=== PATIENT | female | born 1945 | race Caucasian/White ===

== ENCOUNTER 2016-09-10 08:09 | Emergency (ER) | payer MEDICARE ==
[~2016-09-10] VITALS: Ht 165.1 cm; Wt 40.8 kg
--- NOTE | 2016-09-10 08:30 | EKG ---
[facility] [address] [place] [address] Test Date: 2016-09-10 Test Time: 08:13:35 Pat Name: SANTOS URBAN Department: Room: Gender: F On Air Director: : 1945 Requested By: AMARI STORY Order Number: [id number] Reading MD: Chelita Pinto Measurements Intervals [place] Rate: 81 P: 24 DE: 146 QRS: -13 QRSD: 88 T: 56 QT: 428 QTc: 498 Interpretive Statements SINUS RHYTHM LEFT ATRIAL ABNORMALITY LEFTWARD AXIS QRS(T) CONTOUR ABNORMALITY CONSISTENT WITH ANTEROSEPTAL INFARCT AGE UNDETERMINED RI6.01 No previous ECG available for comparison Electronically Signed On 09-12-2016 17:47:28 CDT by Chelita Pinto
--- NOTE | 2016-09-10 08:35 | PHYS DOC ---
Past Medical History Past Medical History: Cancer, High Cholesterol Additional Past Medical Histor: Melanoma Past Surgical History: Other Additional Past Surgical Histo: Lt shoulder Alcohol Use: None Drug Use: None Adult General Chief Complaint Chief Complaint: CHEST PAIN HPI HPI This is a 71-year-old female whose presenting from [address] [place] [address] facility for concerning chest pain. Patient states the pain was left-sided and was significant upon awakening. EMS upon arrival states she had some concerning elevation that was seen in V3 and V4. A 325 mg aspirin was given. Upon arrival now, the patient is in no acute distress and states her pain is fully resolved. She had no associated symptoms with her pain. She denies any nausea or vomiting. She denies any chest pain or shortness of breath. She is alert and oriented at this time and can answer basic questions and follow commands. She has history of advanced dementia but is at her stated baseline. She is saturating near 100% on room air in no acute distress. She denies any significant cardiac history. She is status post 1 week from left clavicular repair states her pain was lower than her clavicular repair site when she had it. Review of Systems Review of Systems Constitutional: Denies fever or chills [] Eyes: Denies change in visual acuity, redness, or eye pain [] HENT: Denies nasal congestion or sore throat [] Respiratory: Denies cough or shortness of breath [] Cardiovascular: No additional information not addressed in HPI [] GI: Denies abdominal pain, nausea, vomiting, bloody stools or diarrhea [] : Denies dysuria or hematuria [] Musculoskeletal: Denies back pain or joint pain [] Integument: Denies rash or skin lesions [] Neurologic: Denies headache, focal weakness or sensory changes [] Endocrine: Denies polyuria or polydipsia [] Current Medications Current Medications Current Medications Medications (Trade) Dose Ordered Sig/Rafaela Start Time Stop Time Status Last Admin Dose Admin Acetaminophen (Tylenol) 650 mg PRN Q4HRS PRN 09/10/16 09:15 09/11/16 09:14 Ondansetron HCl (Zofran) 4 mg PRN Q8HRS PRN 09/10/16 09:15 09/11/16 09:14 Allergies Allergies Allergies Coded Allergies Type Severity Reaction Last Updated Verified No Known Drug Allergies 09/10/16 No Physical Exam Physical Exam Constitutional: Well developed, well nourished, no acute distress, non-toxic appearance. [] HENT: Normocephalic, atraumatic, bilateral external ears normal, oropharynx moist, no oral exudates, nose normal. [] Eyes: PERRLA, EOMI, conjunctiva normal, no discharge. [] Neck: Normal range of motion, no tenderness, supple, no stridor. [] Cardiovascular:Heart rate regular rhythm, no murmur [] Lungs & Thorax: Bilateral breath sounds clear to auscultation [] Abdomen: Bowel sounds normal, soft, no tenderness, no masses, no pulsatile masses. [] Skin: Warm, dry, no erythema, no rash. [] Back: No tenderness, no CVA tenderness. [] Extremities: No tenderness, no cyanosis, no clubbing, ROM intact, no edema. [] Neurologic: Alert and oriented X 3, normal motor function, normal sensory function, no focal deficits noted. [] Psychologic: Affect normal, judgement normal, mood normal. [] Current Patient Data Vital Signs Vital Signs Date Time Temp Pulse Resp B/P (MAP) Pulse Ox O2 Delivery O2 Flow Rate FiO2 09/10/16 09:00 92 20 178/81 (113) 97 09/10/16 08:09 99.1 Room Air 99.1 Lab Values Laboratory Tests Test 09/10/16 08:25 09/10/16 10:16 White Blood Count 5.0 x10^3/uL (4.0-11.0) Red Blood Count 4.22 x10^6/uL (3.50-5.40) Hemoglobin 12.9 g/dL (12.0-15.5) Hematocrit 39.1 % (36.0-47.0) Mean Corpuscular Volume 93 fL (79-100) Mean Corpuscular Hemoglobin 31 pg (25-35) Mean Corpuscular Hemoglobin Concent 33 g/dL (31-37) Red Cell Distribution Width 14.7 % (11.5-14.5) H Platelet Count 226 x10^3/uL (140-400) Neutrophils (%) (Auto) 81 % (31-73) H Lymphocytes (%) (Auto) 12 % (24-48) L Monocytes (%) (Auto) 6 % (0-9) Eosinophils (%) (Auto) 0 % (0-3) Basophils (%) (Auto) 1 % (0-3) Neutrophils # (Auto) 4.0 x10^3uL (1.8-7.7) Lymphocytes # (Auto) 0.6 x10^3/uL (1.0-4.8) L Monocytes # (Auto) 0.3 x10^3/uL (0.0-1.1) Eosinophils # (Auto) 0.0 x10^3/uL (0.0-0.7) Basophils # (Auto) 0.0 x10^3/uL (0.0-0.2) Sodium Level 143 mmol/L (136-145) Potassium Level 4.0 mmol/L (3.5-5.1) Chloride Level 105 mmol/L (98-107) Carbon Dioxide Level 31 mmol/L (21-32) Anion Gap 7 (6-14) Blood Urea Nitrogen 18 mg/dL (7-20) Creatinine 0.8 mg/dL (0.6-1.0) Estimated GFR (Cockcroft-Gault) 70.5 Glucose Level 97 mg/dL (70-99) Calcium Level 9.5 mg/dL (8.5-10.1) Troponin I Quantitative < 0.017 ng/mL (0.000-0.055) < 0.017 ng/mL (0.000-0.055) Laboratory Tests 09/10/16 08:25 Laboratory Tests 09/10/16 08:25 EKG EKG EKG as interpreted by me shows a sinus rhythm with a rate of 81 bpm. There is no STEMI criteria seen. There is a leftward axis. QTc interval is slightly prolonged at 498 ms. Radiology/Procedures Radiology/Procedures Indication left-sided chest pain. A single view of the chest was obtained. No prior imaging of the chest is available. There is mild cardiomegaly. There are background changes suggesting emphysema or fibrosis. There is no congestive heart failure. An acute parenchymal infiltrate is not seen. Significant pleural fluid is not present and there is no pneumothorax. There are healed left rib fractures. Postoperative changes are seen associated with the left clavicle. IMPRESSION: No acute process is seen in the chest Course & Med Decision Making Course & Med Decision Making Pertinent Labs and Imaging studies reviewed. (See chart for details) This is 71-year-old female who states she's having ongoing chest pain that could be related to her recent left clavicular surgery. Her pain is now resolved upon arrival. Her EKG and chest film at this time are fairly on. Her laboratory workup is unremarkable. I discussed the case with the on-call cardiology team who came down to the bedside to evaluate the patient. I'll be admitting the patient primarily to the hospitalist service. I will discuss the case with the admitting physician, Dr. Shah. Dr. Chua has agreed to come down and evaluate the patient at bedside. A second troponin will also be ordered. If cardiology clears the patient and her second troponin is negative, the patient will be safe to be discharged at this time. Her second troponin was negative. Patient was observed in the department for over 3 hours without any return of her chest pain. Dr. Chua agreed that the patient will be safe to be discharged at this time and so she will be discharged to follow closely with her primary care doctor with return precautions. Dragon Disclaimer Dragon Disclaimer This electronic medical record was generated, in whole or in part, using a voice recognition dictation system. Departure Departure Impression: Primary Impression: Chest pain Disposition: 01 HOME, SELF-CARE Admitting Physician: Other Condition: STABLE Referrals: GRISEL CHUA MD Patient Instructions: Chest Pain (Nonspecific)-Brief Additional Instructions: Please follow up with the band scroll saw operator as discussed and your primary doctor in the next 2-3 days. Return to the ER if you develop any worsening of your symptoms. AMARI STORY DO September 10, 2016 08:35
[2016-09-10 08:38] LABS: BASO % 1 % (0-3); EOS % 0 % (0-3); HEMATOCRIT 39.1 % (36.0-47.0); HEMOGLOBIN 12.9 g/dL (12.0-15.5); LYMPH # 0.6 x10^3/uL (1.0-4.8); LYMPH % 12 % (24-48); MEAN CORPUSCULAR HEMOGLOBIN 31 pg (25-35); MEAN CORPUSCULAR HGB CONC 33 g/dL (31-37); MEAN CORPUSCULAR VOLUME 93 fL (79-100); MONO % 6 % (0-9); NEUT % 81 % (31-73); PLATELET COUNT 226 x10^3/uL (140-400); RED BLOOD COUNT 4.22 x10^6/uL (3.50-5.40); RED CELL DISTRIBUTION WIDTH 14.7 % (11.5-14.5)
--- NOTE | 2016-09-10 08:39 | RAD ---
Indication left-sided chest pain. A single view of the chest was obtained. No prior imaging of the chest is available. There is mild cardiomegaly. There are background changes suggesting emphysema or fibrosis. There is no congestive heart failure. An acute parenchymal infiltrate is not seen. Significant pleural fluid is not present and there is no pneumothorax. There are healed left rib fractures. Postoperative changes are seen associated with the left clavicle. IMPRESSION: No acute process is seen in the chest
[2016-09-10 08:44] LABS: CALCIUM 9.5 mg/dL (8.5-10.1); CREATININE 0.8 mg/dL (0.6-1.0); GFR 70.5
--- NOTE | 2016-09-10 09:01 | PDOC2 ---
SUMEETSABINE MORALES Darinel OPERATIONS MANAGEMENT TRAINEE 09/10/16 0901: CARDIAC CONSULT DATE OF CONSULT Date of Consult DATE: 09/10/16 TIME: 09:00 REASON FOR CONSULT Reason for Consult: chest pain REFERRING PHYSICIAN Referring Physician: Dr. Vincent Bishop SOURCE Source: Caregiver (), Chart review, Patient (is demented) HISTORY OF PRESENT ILLNESS HISTORY OF PRESENT ILLNESS 71 year old female from [facility] who was evaluated in the ER with c/o chest pain. Initially called as STEMI, then cancelled. EKG without acute changes, ? LVH. Initial troponin not consistent with AMI. Pain resolved en route via ambulance and patient reports pain meds given at [facility]. Patient locates pain in left shoulder region and has a new incision in that area. reports two surgeries done for fracture with the most recent involving placement of a plate about a week ago. Patient fell onto concrete about 3 weeks ago and also fractured her pelvis and sacrum. Discussed with ER physician and patient initially located pain in the left upper chest. Reason for Visit: chest pain PAST MEDICAL HISTORY Cardiovascular: Hyperlipidemia Pulmonary: Other (stage IV melanoma with mets to lungs and left lobectomy about 25 years ago) CENTRAL NERVOUS SYSTEM: Dementia GI: No pertinent hx Heme/Onc: Cancer (melanoma with lung mets) Hepatobiliary: No pertinent hx Psych: No pertinent hx Musculoskeletal: Osteoarthritis Rheumatologic: No pertinent hx Infectious disease: No pertinent hx ENT: No pertinent hx Renal/: No pertinent hx Dermatology: No pertinent hx PAST SURGICAL HISTORY Past Surgical History see PMH and HPI FAMILY HISTORY Family History: Heart Disease, Stroke (father) SOCIAL HISTORY Smoke: No ALCOHOL: none Drugs: None Lives: Long-Term ([facility]) ALLERGIES ALLERGIES: Coded Allergies: No Known Drug Allergies (Unverified , 09/10/16) ROS Review of System 14 point review with pertinent positive in HPI Eyes: Yes Uses glasses PHYSICAL EXAM General: Alert, Cooperative, No acute distress, Other (frail, elderly) HEENT: Atraumatic, PERRLA Lungs: Clear to auscultation, Normal air movement Heart: Regular rate, Normal S1, Normal S2, No murmurs, Other (no carotid bruits ) Abdomen: Normal bowel sounds, Soft, No tenderness Extremities: No edema, Normal pulses Skin: No rashes Neuro: Normal speech Psych/Mental Status: Mood NL, Other (poor recall) MUSCULOSKELETAL: Osteoarthritic changes both hands VITALS VITALS Vital Signs Date Time Temp Pulse Resp B/P (MAP) Pulse Ox O2 Delivery O2 Flow Rate FiO2 09/10/16 08:09 99.1 77 20 179/80 (113) 99 Room Air 99.1 LABS Lab: Laboratory Tests Test 09/10/16 08:25 White Blood Count 5.0 x10^3/uL (4.0-11.0) Red Blood Count 4.22 x10^6/uL (3.50-5.40) Hemoglobin 12.9 g/dL (12.0-15.5) Hematocrit 39.1 % (36.0-47.0) Mean Corpuscular Volume 93 fL (79-100) Mean Corpuscular Hemoglobin 31 pg (25-35) Mean Corpuscular Hemoglobin Concent 33 g/dL (31-37) Red Cell Distribution Width 14.7 % (11.5-14.5) Platelet Count 226 x10^3/uL (140-400) Neutrophils (%) (Auto) 81 % (31-73) Lymphocytes (%) (Auto) 12 % (24-48) Monocytes (%) (Auto) 6 % (0-9) Eosinophils (%) (Auto) 0 % (0-3) Basophils (%) (Auto) 1 % (0-3) Neutrophils # (Auto) 4.0 x10^3uL (1.8-7.7) Lymphocytes # (Auto) 0.6 x10^3/uL (1.0-4.8) Monocytes # (Auto) 0.3 x10^3/uL (0.0-1.1) Eosinophils # (Auto) 0.0 x10^3/uL (0.0-0.7) Basophils # (Auto) 0.0 x10^3/uL (0.0-0.2) Sodium Level 143 mmol/L (136-145) Potassium Level 4.0 mmol/L (3.5-5.1) Chloride Level 105 mmol/L (98-107) Carbon Dioxide Level 31 mmol/L (21-32) Anion Gap 7 (6-14) Blood Urea Nitrogen 18 mg/dL (7-20) Creatinine 0.8 mg/dL (0.6-1.0) Estimated GFR (Cockcroft-Gault) 70.5 Glucose Level 97 mg/dL (70-99) Calcium Level 9.5 mg/dL (8.5-10.1) Troponin I Quantitative < 0.017 ng/mL (0.000-0.055) IMAGES IMAGES CXR without acute findings; plate in left shoulder EKG EKG no acute changes ASSESSMENT/PLAN ASSESSMENT/PLAN 1. chest pain, atypical no acute changes in EKG and initial troponin not consistent with AMI patient locates pain along recent incision on left shoulder repeat troponin level, evaluate by primary blender operator and expect transfer back to [facility] this a.m. no further evaluation planned at this time 2. recent fall with shoulder, pelvis and sacral fractures recent left shoulder surgery for repair of fracture 3. dementia 4. remote history of stage IV melanoma with left lobectomy Problems: GRISEL AGUIRRE MD 09/10/16 1356: CARDIAC CONSULT ALLERGIES ALLERGIES: Coded Allergies: No Known Drug Allergies (Unverified , 09/10/16) ASSESSMENT/PLAN ASSESSMENT/PLAN Pt. seen and examined. Agree with above MISSILE CONTROL PILOT note. 71 y.o woman with non-cardiac pain Normal cardiac exam no edema trop neg x 2. supportive care. pls call with questions. Problems: SABINE FIGUEROA APRN September 10, 2016 09:01 GRISEL AGUIRRE MD September 10, 2016 13:56
[2016-09-10] MEDS ORDERED: ONDANSETRON PF 4 MG/2 ML VIAL. IV PRN (09:15)
[2016-09-10] MEDS ORDERED: ACETAMINOPHEN 325 MG TABLET. PO PRN (09:15)
[2016-09-10 12:00] VITALS: BP 194/84
== END 2016-09-10 12:15 | disposition home or self-care (01) ==
LOC: ER 08:09
DX: R07.9 Chest pain, unspecified (principal); E78.00 Pure hypercholesterolemia, unspecified
CPT/HCPCS: 36415; 71010; 80048; 84484; 85027; 93005; 99285-25

== ENCOUNTER 2018-01-09 19:05 | Emergency (ER) | payer MEDICARE ==
[~2018-01-09] VITALS: Ht 152.4 cm; Wt 40.8 kg
[2018-01-09 19:27] LABS: BASO # 0.1 x10^3/uL (0.0-0.2); BASO % 1 % (0-3); EOS # 0.1 x10^3/uL (0.0-0.7); EOS % 1 % (0-3); HEMATOCRIT 39.5 % (36.0-47.0); HEMOGLOBIN 13.4 g/dL (12.0-15.5); LYMPH % 19 % (24-48); MEAN CORPUSCULAR HEMOGLOBIN 31 pg (25-35); MEAN CORPUSCULAR HGB CONC 34 g/dL (31-37); MEAN CORPUSCULAR VOLUME 90 fL (79-100); MONO # 0.5 x10^3/uL (0.0-1.1); MONO % 10 % (0-9); NEUT # 3.5 x10^3uL (1.8-7.7); NEUT % 68 % (31-73); PLATELET COUNT 198 x10^3/uL (140-400); RED BLOOD COUNT 4.38 x10^6/uL (3.50-5.40); RED CELL DISTRIBUTION WIDTH 16.4 % (11.5-14.5); WHITE BLOOD COUNT 5.1 x10^3/uL (4.0-11.0)
[2018-01-09 19:35] LABS: BILIRUBIN,URINE NEGATIVE (NEG); CLARITY,URINE CLEAR; COLOR,URINE YELLOW; NITRITE,URINE NEGATIVE (NEG); PH,URINE 6.5; PROTEIN,URINE NEGATIVE (NEG-TRACE); UROBILINOGEN,URINE 0.2 mg/dL (0.2 mg/dL)
[2018-01-09 19:36] LABS: PROTHROMBIN TIME PATIENT 12.9 SEC (11.7-14.0)
[2018-01-09 19:41] LABS: CALCIUM 9.3 mg/dL (8.5-10.1); CREATININE 1.2 mg/dL (0.6-1.0); POTASSIUM 4.7 mmol/L (3.5-5.1)
[2018-01-09 19:43] LABS: BACTERIA,URINE 0 /HPF (0-FEW); WBC,URINE OCC /HPF (0-4)
[2018-01-09 19:44] LABS: HYALINE CASTS, URINE FEW /HPF
[2018-01-09 19:45] LABS: AMPHETAMINE/METHAMPHETAMINE NEG (NEG); BARBITURATES NEG (NEG); BENZODIAZEPINES NEG (NEG); CANNABINOIDS NEG (NEG); COCAINE NEG (NEG); METHADONE NEG (NEG); OPIATES NEG (NEG); PHENCYCLIDINE NEG (NEG)
[2018-01-09 19:46] LABS: ALBUMIN 3.2 g/dL (3.4-5.0); ALBUMIN/GLOBULIN RATIO 0.8 (1.0-1.7); TOTAL BILIRUBIN 0.3 mg/dL (0.2-1.0); TOTAL PROTEIN 7.4 g/dL (6.4-8.2)
--- NOTE | 2018-01-09 20:25 | RAD ---
CT brain without contrast, CT maxillofacial without contrast, CT cervical spine without contrast. HISTORY: History of dementia, left eye swelling fell off bed, unwitnessed fall CT brain CT scan of brain was done without contrast. A skull fracture is not identified. There is no intracranial hemorrhage. A subdural hematoma is not identified. Ventricles are dilated. There is mild atrophy. There is decreased density in the white matter likely chronic microvascular change. An acute CVA is not identified. IMPRESSION: 1. Atrophy and chronic white matter changes. 2. Ventricular dilatation probably related atrophy. 3. No intracranial hemorrhage or other acute change. End impression CT FACIAL BONES: Axial noncontrast images were obtained to the facial bones. Mandible is intact. Sinuses are clear throughout. There is soft tissue swelling of the left orbit. An orbital fracture is not identified. Nasal bone appears intact. IMPRESSION: 1. Left orbital swelling. 2. No facial fracture noted. 3. Sinuses are clear. CT cervical spine Axial CT images were obtained to the cervical spine. There is degenerative change and hypertrophic spurring. An acute fracture is not identified. There is mild scoliosis which could be positional. There is facet arthritis at multiple levels. There is disc space narrowing at C4-5, C5-6 and C6-7 with spurring. IMPRESSION: 1. Extensive degenerative changes in the cervical spine. 2. No acute C-spine fracture PQRS Compliance Statement: One or more of the following individualized dose reduction techniques were utilized for this examination: 1. Automated exposure control 2. Adjustment of the mA and/or kV according to patient size 3. Use of iterative reconstruction technique Electronically signed by: Adama Danielle MD (01/09/2018 8:21 PM) [id number]
--- NOTE | 2018-01-09 20:35 | PHYS DOC ---
Past Medical History Past Medical History: Cancer, Dementia, High Cholesterol Additional Past Medical Histor: Melanoma, left clavicle fx/repair Past Surgical History: Other Additional Past Surgical Histo: Lt clavicle fx/repair Alcohol Use: None Drug Use: None Adult General Chief Complaint Chief Complaint: TRAUMA ALERT HPI HPI 72-year-old female who resides in a memory care unit presents after they found her wedged between the wall and the bed. Patient is unable to tell me exactly what happened. They think she fell and hit her head on the wall. Unknown if she lost consciousness. Patient states that she has no significant pain. No other injury.[] Review of Systems Review of Systems Review of systems is unobtainable secondary to baseline dementia. Allergies Allergies Allergies Coded Allergies Type Severity Reaction Last Updated Verified No Known Drug Allergies 09/10/16 No Physical Exam Physical Exam Constitutional: Elderly female in no distress. [] HENT: Large left periorbital hematoma no zygomatic crepitus[] Eyes: PERRLA, EOMI, conjunctiva normal, no discharge. [] Neck: Normal range of motion, no tenderness, supple, no stridor. [] Cardiovascular:Heart rate regular rhythm, no murmur [] Lungs & Thorax: Bilateral breath sounds clear to auscultation [] Abdomen: Bowel sounds normal, soft, no tenderness, no masses, no pulsatile masses. [] Skin: Warm, dry, no erythema, no rash. [] Back: No tenderness, no CVA tenderness. [] Extremities: No tenderness, no cyanosis, no clubbing, ROM intact, no edema. [] Neurologic: Alert and talkative but disoriented, normal motor function, normal sensory function, no focal deficits noted. [] Psychologic: Very pleasant affect. [] Current Patient Data Vital Signs Vital Signs Date Time Temp Pulse Resp B/P (MAP) Pulse Ox O2 Delivery O2 Flow Rate FiO2 01/09/18 20:00 74 118/55 (76) 97 Room Air 01/09/18 19:05 97.6 18 97.6 Lab Values Laboratory Tests Test 01/09/18 19:11 01/09/18 19:27 White Blood Count 5.1 x10^3/uL (4.0-11.0) Red Blood Count 4.38 x10^6/uL (3.50-5.40) Hemoglobin 13.4 g/dL (12.0-15.5) Hematocrit 39.5 % (36.0-47.0) Mean Corpuscular Volume 90 fL (79-100) Mean Corpuscular Hemoglobin 31 pg (25-35) Mean Corpuscular Hemoglobin Concent 34 g/dL (31-37) Red Cell Distribution Width 16.4 % (11.5-14.5) H Platelet Count 198 x10^3/uL (140-400) Neutrophils (%) (Auto) 68 % (31-73) Lymphocytes (%) (Auto) 19 % (24-48) L Monocytes (%) (Auto) 10 % (0-9) H Eosinophils (%) (Auto) 1 % (0-3) Basophils (%) (Auto) 1 % (0-3) Neutrophils # (Auto) 3.5 x10^3uL (1.8-7.7) Lymphocytes # (Auto) 1.0 x10^3/uL (1.0-4.8) Monocytes # (Auto) 0.5 x10^3/uL (0.0-1.1) Eosinophils # (Auto) 0.1 x10^3/uL (0.0-0.7) Basophils # (Auto) 0.1 x10^3/uL (0.0-0.2) Prothrombin Time 12.9 SEC (11.7-14.0) Prothrombin Time INR 1.0 (0.8-1.1) Sodium Level 132 mmol/L (136-145) L Potassium Level 4.7 mmol/L (3.5-5.1) Chloride Level 97 mmol/L (98-107) L Carbon Dioxide Level 29 mmol/L (21-32) Anion Gap 6 (6-14) Blood Urea Nitrogen 13 mg/dL (7-20) Creatinine 1.2 mg/dL (0.6-1.0) H Estimated GFR (Cockcroft-Gault) 44.0 BUN/Creatinine Ratio 11 (6-20) Glucose Level 308 mg/dL (70-99) H Calcium Level 9.3 mg/dL (8.5-10.1) Total Bilirubin 0.3 mg/dL (0.2-1.0) Aspartate Amino Transferase (AST) 28 U/L (15-37) Alanine Aminotransferase (ALT) 40 U/L (14-59) Alkaline Phosphatase 160 U/L (46-116) H Total Protein 7.4 g/dL (6.4-8.2) Albumin 3.2 g/dL (3.4-5.0) L Albumin/Globulin Ratio 0.8 (1.0-1.7) L Ethyl Alcohol Level < 10 mg/dL (0-10) Urine Collection Type Unknown Urine Color Yellow Urine Clarity Clear Urine pH 6.5 Urine Specific [place] 1.025 Urine Protein Negative mg/dL (NEG-TRACE) Urine Glucose (UA) Negative mg/dL (NEG) Urine Ketones (Stick) Trace mg/dL (NEG) Urine Blood Negative (NEG) Urine Nitrite Negative (NEG) Urine Bilirubin Negative (NEG) Urine Urobilinogen Dipstick 0.2 mg/dL (0.2 mg/dL) Urine Leukocyte Esterase Negative (NEG) Urine RBC 6-10 /HPF (0-2) Urine WBC Occ /HPF (0-4) Urine Bacteria 0 /HPF (0-FEW) Urine Hyaline Casts Few /HPF Urine Mucus Mod /LPF Urine Opiates Screen Neg (NEG) Urine Methadone Screen Neg (NEG) Urine Barbiturates Neg (NEG) Urine Phencyclidine Screen Neg (NEG) Urine Amphetamine/Methamphetamine Neg (NEG) Urine Benzodiazepines Screen Neg (NEG) Urine Cocaine Screen Neg (NEG) Urine Cannabinoids Screen Neg (NEG) Urine Ethyl Alcohol Neg (NEG) Laboratory Tests 01/09/18 19:11 Laboratory Tests 01/09/18 19:11 EKG EKG [] Radiology/Procedures Radiology/Procedures [] Impressions: PROCEDURE: CT CERVICAL SPINE WO CONTRAST CT brain without contrast, CT maxillofacial without contrast, CT cervical spine without contrast. HISTORY: History of dementia, left eye swelling fell off bed, unwitnessed fall CT brain CT scan of brain was done without contrast. A skull fracture is not identified. There is no intracranial hemorrhage. A subdural hematoma is not identified. Ventricles are dilated. There is mild atrophy. There is decreased density in the white matter likely chronic microvascular change. An acute CVA is not identified. IMPRESSION: 1. Atrophy and chronic white matter changes. 2. Ventricular dilatation probably related atrophy. 3. No intracranial hemorrhage or other acute change. End impression CT FACIAL BONES: Axial noncontrast images were obtained to the facial bones. Mandible is intact. Sinuses are clear throughout. There is soft tissue swelling of the left orbit. An orbital fracture is not identified. Nasal bone appears intact. IMPRESSION: 1. Left orbital swelling. 2. No facial fracture noted. 3. Sinuses are clear. CT cervical spine Axial CT images were obtained to the cervical spine. There is degenerative change and hypertrophic spurring. An acute fracture is not identified. There is mild scoliosis which could be positional. There is facet arthritis at multiple levels. There is disc space narrowing at C4-5, C5-6 and C6-7 with spurring. IMPRESSION: 1. Extensive degenerative changes in the cervical spine. 2. No acute C-spine fracture Course & Med Decision Making Course & Med Decision Making Pertinent Labs and Imaging studies reviewed. (See chart for details) [] Dragon Disclaimer Dragon Disclaimer This electronic medical record was generated, in whole or in part, using a voice recognition dictation system. Departure Departure Impression: Primary Impression: Contusion of face Additional Impression: Periorbital hematoma of left eye Disposition: 01 HOME, SELF-CARE Condition: STABLE Referrals: DENI BROOKE MD (PCP) Patient Instructions: Facial or Scalp Contusion Additional Instructions: Keep ice on the swollen area several times daily for at least 15-20 minutes at a time. Follow with primary care physician in the next 2-3 days for recheck. Return to emergency department with any new or concerning symptoms Problem Qualifiers Primary Impression: Contusion of face Encounter type: initial encounter Qualified Codes: S00.83XA - Contusion of other part of head, initial encounter RASHEED CARLOS DO Jan 09, 2018 20:35
[2018-01-09 20:45] VITALS: BP 143/63
== END 2018-01-09 22:16 | disposition home or self-care (01) ==
LOC: ER 19:05
DX: S00.83XA Contusion of other part of head, initial encounter (principal); H57.8 Other specified disorders of eye and adnexa; E78.00 Pure hypercholesterolemia, unspecified; F03.90 Unspecified dementia, unspecified severity, without behavioral disturbance, psychotic disturbance, mood disturbance, and anxiety; W18.09XA Striking against other object with subsequent fall, initial encounter; Y93.89 Activity, other specified; Y92.89 Other specified places as the place of occurrence of the external cause; Y99.8 Other external cause status
CPT/HCPCS: 36415; 70450; 70486; 72125; 80053; 80307; 81001; 85025; 85610; 99285; G0480; P9612; G0479

== ENCOUNTER 2018-01-28 18:39 | Inpatient (IN) | payer MEDICARE ==
[~2018-01-28] VITALS: Ht 167.6 cm; Wt 42.5 kg
--- NOTE | 2018-01-28 18:55 | PHYS DOC ---
Past Medical History Past Medical History: Cancer, Dementia, High Cholesterol Additional Past Medical Histor: Melanoma, left clavicle fx/repair Past Surgical History: Other Additional Past Surgical Histo: Lt clavicle fx/repair Alcohol Use: None Drug Use: None Adult General Chief Complaint Chief Complaint: Avulsion on chin secondary to fall HPI HPI Patient is a 72 year old female who presents with an avulsion on her chin after falling. Patient is a poor historian as she has dementia. Per EMS, patient fell at [facility] 4 hours ago at 3pm this afternoon. The fall was unwitnessed, but EMS states the assisted reported there was no loss of consciousness. Patient does not recall falling and uncertain if she hit her head. She has a 1/2 inch wide avulsion on the left side of her chin. She currently denies any pain, headache, dizziness, chest pain, or heart palpitations Review of Systems Review of Systems Constitutional: Denies fever or chills Eyes: Denies change in visual acuity, redness, or eye pain HENT: Notes chin pain; Denies nasal congestion or sore throat Respiratory: Denies cough or shortness of breath Cardiovascular: Denies chest pain or shortness of breath GI: Denies abdominal pain, nausea, vomiting, diarrhea : Denies dysuria or hematuria Musculoskeletal: Denies back pain or joint pain Integument: Denies rash or skin lesions Neurologic: Denies headache, focal weakness or sensory changes Complete systems were reviewed and found to be within normal limits, except as documented in this note. Family History Family History Noncontributory Current Medications Current Medications Current Medications Medications (Trade) Dose Ordered Sig/Rafaela Start Time Stop Time Status Last Admin Dose Admin Ceftriaxone Sodium 50 ml @ 100 mls/hr 1X ONCE 01/28/18 21:30 01/28/18 21:59 DC 01/28/18 22:16 100 MLS/HR Diphtheria/ Tetanus/Acell Pertussis (Boostrix) 0.5 ml ONCE ONCE 01/28/18 20:00 01/28/18 20:01 DC 01/28/18 20:50 0.5 ML Lidocaine/ Epinephrine (LIDOCAINE 2%-EPI 1:100,000 multi-dose) 20 ml 1X ONCE 01/28/18 19:15 01/28/18 19:16 DC 01/28/18 19:50 20 ML Neomycin/ Polymyxin/ Bacitracin (Triple Antibiotic Ointment) 1 pkt 1X ONCE 01/28/18 19:15 01/28/18 19:16 DC 01/28/18 20:50 1 PKT Sodium Chloride 1,000 ml @ 1,000 mls/hr 1X ONCE 01/28/18 19:15 01/28/18 20:14 DC 01/28/18 19:50 1,000 MLS/HR Allergies Allergies Physical Exam Physical Exam Constitutional: Well developed, appears malnourished HENT: Gaping avulsion approx. 3 cm. in length- not currently hemorrhaging, mild hemorrhaging from upper middle gingiva, normocephalic, atraumatic, bilateral external ears normal, oropharynx dry Eyes: Conjunctiva normal, no discharge, approx. 6 cm. contusion 1.5 in. below left eye (probably old) Neck: Decreased range of motion, no tenderness Cardiovascular: Heart rate regular rhythm, no murmur Lungs & Thorax: Bilateral breath sounds clear to auscultation Abdomen: Soft, nontender Skin: Warm, dry, no erythema, no rash Back: No tenderness, no CVA tenderness Extremities: No tenderness, slightly decreased ROM in bilateral hips, no edema Neurologic: Alert and oriented only to person, generalized weakness Psychologic: Affect normal, judgement impaired, mood normal Current Patient Data Vital Signs Vital Signs Date Time Temp Pulse Resp B/P (MAP) Pulse Ox O2 Delivery O2 Flow Rate FiO2 01/28/18 21:23 86 20 165/75 (105) 98 Room Air 01/28/18 18:40 97.2 97.2 Lab Values Laboratory Tests Test 01/28/18 19:08 01/28/18 20:45 White Blood Count 6.3 x10^3/uL (4.0-11.0) Red Blood Count 4.32 x10^6/uL (3.50-5.40) Hemoglobin 13.3 g/dL (12.0-15.5) Hematocrit 39.3 % (36.0-47.0) Mean Corpuscular Volume 91 fL (79-100) Mean Corpuscular Hemoglobin 31 pg (25-35) Mean Corpuscular Hemoglobin Concent 34 g/dL (31-37) Red Cell Distribution Width 15.1 % (11.5-14.5) H Platelet Count 170 x10^3/uL (140-400) Neutrophils (%) (Auto) 66 % (31-73) Lymphocytes (%) (Auto) 21 % (24-48) L Monocytes (%) (Auto) 11 % (0-9) H Eosinophils (%) (Auto) 1 % (0-3) Basophils (%) (Auto) 1 % (0-3) Neutrophils # (Auto) 4.2 x10^3uL (1.8-7.7) Lymphocytes # (Auto) 1.3 x10^3/uL (1.0-4.8) Monocytes # (Auto) 0.7 x10^3/uL (0.0-1.1) Eosinophils # (Auto) 0.1 x10^3/uL (0.0-0.7) Basophils # (Auto) 0.0 x10^3/uL (0.0-0.2) Prothrombin Time 13.7 SEC (11.7-14.0) Prothrombin Time INR 1.1 (0.8-1.1) PTT 25 SEC (24-38) Sodium Level 145 mmol/L (136-145) Potassium Level 4.1 mmol/L (3.5-5.1) Chloride Level 106 mmol/L (98-107) Carbon Dioxide Level 33 mmol/L (21-32) H Anion Gap 6 (6-14) Blood Urea Nitrogen 21 mg/dL (7-20) H Creatinine 0.8 mg/dL (0.6-1.0) Estimated GFR (Cockcroft-Gault) 70.3 BUN/Creatinine Ratio 26 (6-20) H Glucose Level 147 mg/dL (70-99) H Lactic Acid Level 2.1 mmol/L (0.4-2.0) H Calcium Level 9.8 mg/dL (8.5-10.1) Magnesium Level 2.3 mg/dL (1.8-2.4) Total Bilirubin 0.3 mg/dL (0.2-1.0) Aspartate Amino Transferase (AST) 16 U/L (15-37) Alanine Aminotransferase (ALT) 7 U/L (14-59) L Alkaline Phosphatase 85 U/L (46-116) Creatine Kinase 112 U/L (26-192) Troponin I Quantitative < 0.017 ng/mL (0.000-0.055) Total Protein 6.6 g/dL (6.4-8.2) Albumin 3.4 g/dL (3.4-5.0) Albumin/Globulin Ratio 1.1 (1.0-1.7) Valproic Acid Level 71 mcg/mL (50-100) Valproic Acid Last Dose Date Unknown Valproic Acid Last Dose Time Unknown Urine Collection Type U cath Urine Color Yellow Urine Clarity Clear Urine pH 7.0 Urine Specific [place] 1.020 Urine Protein 30 mg/dL (NEG-TRACE) Urine Glucose (UA) Negative mg/dL (NEG) Urine Ketones (Stick) Trace mg/dL (NEG) Urine Blood Moderate (NEG) Urine Nitrite Positive (NEG) Urine Bilirubin Negative (NEG) Urine Urobilinogen Dipstick 0.2 mg/dL (0.2 mg/dL) Urine Leukocyte Esterase Large (NEG) Urine RBC 6-10 /HPF (0-2) Urine WBC >40 /HPF (0-4) Urine Squamous Epithelial Cells Occ /LPF Urine Bacteria Many /HPF (0-FEW) Laboratory Tests 01/28/18 19:08 Laboratory Tests 01/28/18 19:08 EKG EKG @ 19:02, normal sinus rhythm at 82bpm, baseline artifact noted, slight J point abnormalities in V2 and V2, slight ST depression in V5 and V6, no significant changes from previous EKG obtained on 09/10/2016. Doubt ischemic etiology Radiology/Procedures Radiology/Procedures CT head/cervical spine: no acute intracranial processes CT maxillofacial: no acute intracranial processes X-ray of pelvis: no acute abnormalities X-ray of chest: no acute abnormalities Course & Med Decision Making Course & Med Decision Making Patient is a 72 year old female with a history of dementia who presents with an avulsion on her chin after falling. Upon examination, she was found to have a 3 cm avulsion on the left side of her chin along with slight hemorrhage from upper middle gingiva. Patient received 1L normal saline. Pertinent labs and imaging studies were obtained and reviewed (see chart for details). A 12-lead EKG was obtained @ 19:02 and showed normal sinus rhythm at 82bpm with baseline artifact noted, slight J point abnormalities in V2 and V2, and slight ST depression in V5 and V6. No significant changes from previous EKG obtained on 09/10/2016. Doubt ischemic etiology. CT scan of the head and cervical spine and CT scan of maxillofacial region showed no acute intracranial processes. X-ray of pelvis and x-ray of chest showed no acute abnormalities. Patient's avulsion was closed using sutures. Her history of tetanus vaccine could not be obtained and a tetanus vaccine was administered. UA showed positive nitrite, large leukocyte esterase, and >40 urine WBC. Suspect UTI and started patient on Rocephin. Urine sent for culture. She does not meet SIRS criteria. Patient requiring admission for further evaluation and treatment of her UTI. Patient also found to have lactic acidosis. Discussed with Dr. Shah who is in agreement with admission for her UTI and lactic acidosis. Discussed findings and plan with patient, who acknowledges understanding and agreement. Dragon Disclaimer Dragon Disclaimer This electronic medical record was generated, in whole or in part, using a voice recognition dictation system. Departure Departure Impression: Primary Impression: UTI (urinary tract infection) Additional Impressions: Fall Chin laceration Lactic acidosis Disposition: ADMITTED INPATIENT Admitting Physician: Farideh Shah Condition: STABLE Referrals: DENI BROOKE MD (PCP) Laceration/Wound Repair Laceration/Wound Repair : Wound Location: face (chin) Wound's Depth, Shape: superficial Wound Length (cm): 4 Wound Explored: contaminated Irrigated w/ Saline (ccs): 250 Betadine Prep?: Yes (chloro prep) Anesthesia: Lidocaine w/ Epi Wound Debrided: moderate Wound Repaired With: sutures Suture Size/Type: 5:0 Number of Sutures: 6 Layer Closure?: No Sterile Dressing Applied?: Yes Splint Applied?: No Sling Applied?: No Problem Qualifiers Primary Impression: UTI (urinary tract infection) Urinary tract infection type: acute cystitis Hematuria presence: without hematuria Qualified Codes: N30.00 - Acute cystitis without hematuria Additional Impressions: Fall Encounter type: initial encounter Qualified Codes: W19.XXXA - Unspecified fall, initial encounter Chin laceration Encounter type: initial encounter Qualified Codes: S01.81XA - Laceration without foreign body of other part of head, initial encounter KRISTOPHER FRANKLIN DO Jan 28, 2018 18:55
[2018-01-28] MEDS ORDERED: LIDOCAINE 2%/EPI 1:100,000 20 ML VIAL. IJ ONE (19:15)
[2018-01-28] MEDS ORDERED: NEOMY/BACITR/POLYMYXIN OINT PACKET. TP ONE (19:15)
[2018-01-28] MEDS ORDERED: IV NORMAL SALINE 1000ML BAG 1,000 ML IV ONE (19:15)
[2018-01-28 19:22] LABS: BASO % 1 % (0-3); EOS # 0.1 x10^3/uL (0.0-0.7); EOS % 1 % (0-3); HEMATOCRIT 39.3 % (36.0-47.0); HEMOGLOBIN 13.3 g/dL (12.0-15.5); LYMPH # 1.3 x10^3/uL (1.0-4.8); LYMPH % 21 % (24-48); MEAN CORPUSCULAR HEMOGLOBIN 31 pg (25-35); MEAN CORPUSCULAR HGB CONC 34 g/dL (31-37); MEAN CORPUSCULAR VOLUME 91 fL (79-100); MONO # 0.7 x10^3/uL (0.0-1.1); MONO % 11 % (0-9); NEUT # 4.2 x10^3uL (1.8-7.7); NEUT % 66 % (31-73); PLATELET COUNT 170 x10^3/uL (140-400); RED BLOOD COUNT 4.32 x10^6/uL (3.50-5.40); RED CELL DISTRIBUTION WIDTH 15.1 % (11.5-14.5); WHITE BLOOD COUNT 6.3 x10^3/uL (4.0-11.0)
[2018-01-28 19:33] LABS: CALCIUM 9.8 mg/dL (8.5-10.1); CREATININE 0.8 mg/dL (0.6-1.0); GFR 70.3; POTASSIUM 4.1 mmol/L (3.5-5.1); PROTHROMBIN TIME PATIENT 13.7 SEC (11.7-14.0)
--- NOTE | 2018-01-28 19:37 | RAD ---
EXAM: CHEST AP ONLY DATE: 01/28/2018 6:53 PM INDICATION: Trauma activation, fall injury COMPARISON: No Prior FINDINGS/ IMPRESSION: The heart is not enlarged. Atherosclerotic calcifications of the tortuous aorta are seen. Mediastinal and hilar contours are normal. Dependent opacities in the lung bases likely atelectasis or consolidation. No pleural effusion or pneumothorax. Screw plate fixation of the left clavicle is again seen. Interval screw plate fixation of the right humerus is noted. Electronically signed by: Mak Joel MD (01/28/2018 7:34 PM) [facility]
[2018-01-28 19:39] LABS: ALBUMIN 3.4 g/dL (3.4-5.0); ALBUMIN/GLOBULIN RATIO 1.1 (1.0-1.7); MAGNESIUM 2.3 mg/dL (1.8-2.4); TOTAL BILIRUBIN 0.3 mg/dL (0.2-1.0); TOTAL PROTEIN 6.6 g/dL (6.4-8.2)
--- NOTE | 2018-01-28 19:41 | RAD ---
EXAM: AP pelvis DATE: 01/28/2018 6:55 PM INDICATION: Trauma activation, fall injury COMPARISON: No Prior FINDINGS/ IMPRESSION: Chronic fracture deformity of the pubic symphysis. No definite acute fracture is convincingly identified although evaluation limited by degree of osteopenia. Moderate to large right colonic stool content overlying the sacrum. Degenerative changes of the lower lumbar spine are seen. No pubic symphysis or SI joint diastases. Electronically signed by: Mak Joel MD (01/28/2018 7:37 PM) [facility]
[2018-01-28] MEDS ORDERED: DIPHTH,PERTUSS(ACELL),TET TOX 0.5 ML DISP.SYRIN. VAX IM ONE (20:00)
[2018-01-28 20:13] LABS: VAL ACID 71 mcg/mL (50-100)
--- NOTE | 2018-01-28 20:16 | RAD ---
EXAM: CT Head without IV contrast CLINICAL HISTORY: PT FELL TODAY; HEAD/NECK PAIN COMPARISON: 01/09/2018. TECHNIQUE: Routine CT of the head without contrast. Soft tissues and bone windows were reviewed. PQRS compliance statement - One or more of the following individualized dose reduction techniques were utilized for this study: 1. Automated exposure control 2. Adjustment of the mA and/or kV according to patient size 3. Use of iterative reconstruction technique FINDINGS: There is no evidence of hemorrhage, mass or extra-axial fluid collection. Gutiérrez-white differentiation is maintained with no evidence of edema. There are non-specific foci of hypodensity in the periventricular and subcortical white matter of the cerebral hemispheres. There is no mass effect or shift of the intracranial structures. The ventricles and cerebral sulci are prominent for the patients stated age consistent with generalized cerebral volume loss. The cerebellum and brainstem are unremarkable. The calvarium demonstrates no evidence of fracture or focal lesion. There is normal aeration of the visualized paranasal sinuses and mastoid air cells. The visualized portions of the orbits are normal. IMPRESSION: No evidence for acute intracranial process. EXAM: Ct Cervical Spine Without Iv Contrast CLINICAL HISTORY: PT FELL TODAY; HEAD/NECK PAIN COMPARISON: 01/09/2018 TECHNIQUE: Helical CT of the cervical spine was performed. Axial, coronal and sagittal reformatted images were also performed. PQRS compliance statement - One or more of the following individualized dose reduction techniques were utilized for this study: 1. Automated exposure control 2. Adjustment of the mA and/or kV according to patient size 3. Use of iterative reconstruction technique FINDINGS: There is no evidence of acute fracture. Vertebral body heights are preserved. There is trace anterolisthesis of C3 on C4. Trace retrolisthesis of C4 on C5. Trace anterolisthesis of C7 on T1. Moderate C4-5, C5-6 and moderate to severe C6-7 intervertebral disc height loss. Mild exaggeration of the normal lumbar lordosis. C2-C3: Small central disc bulge causes mild ventral central canal narrowing. No significant neural foraminal narrowing. C3-C4: Trace anterolisthesis of C3 on C4 with associated facet degenerative changes cause mild left neural foraminal narrowing. C4-C5: Diffuse posterior disc osteophyte complex with associated facet degenerative changes cause moderate central canal stenosis and at least moderate bilateral neural foraminal narrowing. C5-C6: Diffuse posterior disc osteophyte complex and facet degenerative changes cause mild central canal stenosis, mild left and moderate right neural foraminal narrowing. C6-C7: Posterior disc osteophyte complex causes no significant thecal sac deformity or neural foraminal narrowing. C7-T1: Trace anterolisthesis of C7 on T1 with associated diffuse disc bulge causes no significant central canal stenosis or neural foraminal narrowing. IMPRESSION: 1. No evidence of acute fracture. 2. Trace multilevel listhesis as above. 3. Multilevel degenerative changes as above. Exam: CT facial bones CLINICAL HISTORY: PT FELL TODAY; HEAD/NECK PAIN COMPARISON: None available. TECHNIQUE: Helical CT of the facial bones was performed without IV contrast. Axial coronal and sagittal reformatted images were generated. FINDINGS: No definite fracture is noted of the facial bones. Soft tissue defect is seen at the chin, likely laceration. The visualized paranasal sinuses are well-aerated. No evidence of air-fluid levels. The mastoids are unremarkable. The globes, extraocular muscles, optic nerves and retrobulbar fat are normal. Visualized upper aerodigestive tract is normal. Mandible and bilateral temporomandibular joints are normal. IMPRESSION: Laceration at the base of the chin without evidence of acute fracture. Electronically signed by: Mak Joel MD (01/28/2018 8:12 PM) [facility]
[2018-01-28 20:55] LABS: BILIRUBIN,URINE NEGATIVE (NEG); CLARITY,URINE CLEAR; COLOR,URINE YELLOW; NITRITE,URINE POSITIVE (NEG); PROTEIN,URINE 30 mg/dL (NEG-TRACE); UROBILINOGEN,URINE 0.2 mg/dL (0.2 mg/dL)
[2018-01-28 21:09] LABS: BACTERIA,URINE MANY /HPF (0-FEW); SQUAMOUS EPITHELIAL CELL,UR OCC /LPF; WBC,URINE >40 /HPF (0-4)
[2018-01-28] MEDS: ENOXAPARIN 30 MG/0.3 ML SYRINGE. SQ SCH (23:00)
--- NOTE | 2018-01-28 23:08 | PDOC1 ---
History and Physical Date of Admission Date of Admission DATE: 01/28/18 TIME: 23:03 Source Source: Chart review, Patient History of Present Illness History of Present Illness Ms. Betancur is a 72 year old female admit s.p laceration to her chin after falling. in a NH with advanced dementia, poor historian fell at the [facility], was not sen, no LOC, mental status not reported as much [facility] more lethargic here Left side of chin is s/p sutures and bandaged placed in ER before I arrived Past Medical History Cardiovascular: Hyperlipidemia Pulmonary: Other CENTRAL NERVOUS SYSTEM: Dementia GI: No pertinent hx Heme/Onc: Cancer Hepatobiliary: No pertinent hx Psych: No pertinent hx Musculoskeletal: Osteoarthritis Rheumatologic: No pertinent hx Infectious disease: No pertinent hx Renal/: No pertinent hx Family History Family History: Heart Disease, Stroke Social History Smoke: No ALCOHOL: none Drugs: None Current Medications Current Medications Current Medications Sodium Chloride 1,000 ml @ 1,000 mls/hr 1X ONCE IV Last administered on at 19:50; Start 01/28/18 at 19:15; Stop 01/28/18 at 20:14; Status DC Lidocaine/ Epinephrine (LIDOCAINE 2%-EPI 1:100,000 multi-dose) 20 ml 1X ONCE IJ Last administered on 01/28/18at 19:50; Start 01/28/18 at 19:15; Stop at 19:16; Status DC Neomycin/ Polymyxin/ Bacitracin (Triple Antibiotic Ointment) 1 pkt 1X ONCE TP Last administered on 01/28/18at 20:50; Start 01/28/18 at 19:15; Stop 01/28/18 at 19:16; Status DC Diphtheria/ Tetanus/Acell Pertussis (Boostrix) 0.5 ml ONCE ONCE VAX IM Last administered on 01/28/18at 20:50; Start 01/28/18 at 20:00; Stop 01/28/18 at 20:01 ; Status DC Ceftriaxone Sodium 50 ml @ 100 mls/hr 1X ONCE IV Last administered on at 22:16; Start 01/28/18 at 21:30; Stop 01/28/18 at 21:59; Status DC Lorazepam (Ativan) 0.5 mg 1X ONCE IV Last administered on 01/28/18at 22:09; Start 01/28/18 at 22:15; Stop 01/28/18 at 22:16; Status DC Allergies Allergies: Coded Allergies: No Known Drug Allergies (Unverified , 09/10/16) Physical Exam General: Alert, Cooperative, No acute distress, Other (disorented) HEENT: Atraumatic, PERRLA, EOMI Lungs: Normal air movement Heart: S1S2, no murmurs Extremities: No edema, Normal pulses, Other (frail, weak) Skin: No significant lesion Neuro: Normal speech, Other (limited str) Psych/Mental Status: Other (withdrawn affect) Vitals Vitals Vital Signs Date Time Temp Pulse Resp B/P (MAP) Pulse Ox O2 Delivery O2 Flow Rate FiO2 01/28/18 22:00 84 18 163/97 (119) 99 Room Air 01/28/18 18:40 97.2 97.2 Labs Labs Laboratory Tests Test 01/28/18 19:08 01/28/18 20:45 White Blood Count 6.3 x10^3/uL (4.0-11.0) Red Blood Count 4.32 x10^6/uL (3.50-5.40) Hemoglobin 13.3 g/dL (12.0-15.5) Hematocrit 39.3 % (36.0-47.0) Mean Corpuscular Volume 91 fL (79-100) Mean Corpuscular Hemoglobin 31 pg (25-35) Mean Corpuscular Hemoglobin Concent 34 g/dL (31-37) Red Cell Distribution Width 15.1 % (11.5-14.5) Platelet Count 170 x10^3/uL (140-400) Neutrophils (%) (Auto) 66 % (31-73) Lymphocytes (%) (Auto) 21 % (24-48) Monocytes (%) (Auto) 11 % (0-9) Eosinophils (%) (Auto) 1 % (0-3) Basophils (%) (Auto) 1 % (0-3) Neutrophils # (Auto) 4.2 x10^3uL (1.8-7.7) Lymphocytes # (Auto) 1.3 x10^3/uL (1.0-4.8) Monocytes # (Auto) 0.7 x10^3/uL (0.0-1.1) Eosinophils # (Auto) 0.1 x10^3/uL (0.0-0.7) Basophils # (Auto) 0.0 x10^3/uL (0.0-0.2) Prothrombin Time 13.7 SEC (11.7-14.0) Prothromb Time International Ratio 1.1 (0.8-1.1) Activated Partial Thromboplast Time 25 SEC (24-38) Sodium Level 145 mmol/L (136-145) Potassium Level 4.1 mmol/L (3.5-5.1) Chloride Level 106 mmol/L (98-107) Carbon Dioxide Level 33 mmol/L (21-32) Anion Gap 6 (6-14) Blood Urea Nitrogen 21 mg/dL (7-20) Creatinine 0.8 mg/dL (0.6-1.0) Estimated GFR (Cockcroft-Gault) 70.3 BUN/Creatinine Ratio 26 (6-20) Glucose Level 147 mg/dL (70-99) Lactic Acid Level 2.1 mmol/L (0.4-2.0) Calcium Level 9.8 mg/dL (8.5-10.1) Magnesium Level 2.3 mg/dL (1.8-2.4) Total Bilirubin 0.3 mg/dL (0.2-1.0) Aspartate Amino Transf (AST/SGOT) 16 U/L (15-37) Alanine Aminotransferase (ALT/SGPT) 7 U/L (14-59) Alkaline Phosphatase 85 U/L (46-116) Creatine Kinase 112 U/L (26-192) Troponin I Quantitative < 0.017 ng/mL (0.000-0.055) Total Protein 6.6 g/dL (6.4-8.2) Albumin 3.4 g/dL (3.4-5.0) Albumin/Globulin Ratio 1.1 (1.0-1.7) Valproic Acid (Depakene) Level 71 mcg/mL (50-100) Valproic Acid Last Dose Date Unknown Valproic Acid Last Dose Time Unknown Urine Collection Type U cath Urine Color Yellow Urine Clarity Clear Urine pH 7.0 Urine Specific [place] 1.020 Urine Protein 30 mg/dL (NEG-TRACE) Urine Glucose (UA) Negative mg/dL (NEG) Urine Ketones (Stick) Trace mg/dL (NEG) Urine Blood Moderate (NEG) Urine Nitrite Positive (NEG) Urine Bilirubin Negative (NEG) Urine Urobilinogen Dipstick 0.2 mg/dL (0.2 mg/dL) Urine Leukocyte Esterase Large (NEG) Urine RBC 6-10 /HPF (0-2) Urine WBC >40 /HPF (0-4) Urine Squamous Epithelial Cells Occ /LPF Urine Bacteria Many /HPF (0-FEW) Laboratory Tests Test 01/28/18 19:08 01/28/18 20:45 White Blood Count 6.3 x10^3/uL (4.0-11.0) Red Blood Count 4.32 x10^6/uL (3.50-5.40) Hemoglobin 13.3 g/dL (12.0-15.5) Hematocrit 39.3 % (36.0-47.0) Mean Corpuscular Volume 91 fL (79-100) Mean Corpuscular Hemoglobin 31 pg (25-35) Mean Corpuscular Hemoglobin Concent 34 g/dL (31-37) Red Cell Distribution Width 15.1 % (11.5-14.5) Platelet Count 170 x10^3/uL (140-400) Neutrophils (%) (Auto) 66 % (31-73) Lymphocytes (%) (Auto) 21 % (24-48) Monocytes (%) (Auto) 11 % (0-9) Eosinophils (%) (Auto) 1 % (0-3) Basophils (%) (Auto) 1 % (0-3) Neutrophils # (Auto) 4.2 x10^3uL (1.8-7.7) Lymphocytes # (Auto) 1.3 x10^3/uL (1.0-4.8) Monocytes # (Auto) 0.7 x10^3/uL (0.0-1.1) Eosinophils # (Auto) 0.1 x10^3/uL (0.0-0.7) Basophils # (Auto) 0.0 x10^3/uL (0.0-0.2) Prothrombin Time 13.7 SEC (11.7-14.0) Prothromb Time International Ratio 1.1 (0.8-1.1) Activated Partial Thromboplast Time 25 SEC (24-38) Sodium Level 145 mmol/L (136-145) Potassium Level 4.1 mmol/L (3.5-5.1) Chloride Level 106 mmol/L (98-107) Carbon Dioxide Level 33 mmol/L (21-32) Anion Gap 6 (6-14) Blood Urea Nitrogen 21 mg/dL (7-20) Creatinine 0.8 mg/dL (0.6-1.0) Estimated GFR (Cockcroft-Gault) 70.3 BUN/Creatinine Ratio 26 (6-20) Glucose Level 147 mg/dL (70-99) Lactic Acid Level 2.1 mmol/L (0.4-2.0) Calcium Level 9.8 mg/dL (8.5-10.1) Magnesium Level 2.3 mg/dL (1.8-2.4) Total Bilirubin 0.3 mg/dL (0.2-1.0) Aspartate Amino Transf (AST/SGOT) 16 U/L (15-37) Alanine Aminotransferase (ALT/SGPT) 7 U/L (14-59) Alkaline Phosphatase 85 U/L (46-116) Creatine Kinase 112 U/L (26-192) Troponin I Quantitative < 0.017 ng/mL (0.000-0.055) Total Protein 6.6 g/dL (6.4-8.2) Albumin 3.4 g/dL (3.4-5.0) Albumin/Globulin Ratio 1.1 (1.0-1.7) Valproic Acid (Depakene) Level 71 mcg/mL (50-100) Valproic Acid Last Dose Date Unknown Valproic Acid Last Dose Time Unknown Urine Collection Type U cath Urine Color Yellow Urine Clarity Clear Urine pH 7.0 Urine Specific [place] 1.020 Urine Protein 30 mg/dL (NEG-TRACE) Urine Glucose (UA) Negative mg/dL (NEG) Urine Ketones (Stick) Trace mg/dL (NEG) Urine Blood Moderate (NEG) Urine Nitrite Positive (NEG) Urine Bilirubin Negative (NEG) Urine Urobilinogen Dipstick 0.2 mg/dL (0.2 mg/dL) Urine Leukocyte Esterase Large (NEG) Urine RBC 6-10 /HPF (0-2) Urine WBC >40 /HPF (0-4) Urine Squamous Epithelial Cells Occ /LPF Urine Bacteria Many /HPF (0-FEW) VTE Prophylaxis Ordered VTE Prophylaxis Devices: No VTE Pharmacological Prophylaxi: Yes Assessment/Plan Assessment/Plan fall at assisted chin laceration advanced dementia w. acute on chronic encephalopathy from UTI DNR from NH malnutrition, with BMI 14.5 LORENE ADKINS MD Jan 28, 2018 23:08
[2018-01-28 23:30] VITALS: BP 145/69
[2018-01-28] MEDS ORDERED: cefTRIAXone IV Push 1 GM VIAL. IVP SCH (23:30)
[2018-01-29] VITALS (7 sets, daily range): BP systolic 117–156; BP diastolic 56–75
[2018-01-29] MEDS ORDERED: CALC500T30 PO (01:02)
[2018-01-29] MEDS ORDERED: HYDR-2758 PO (01:02)
[2018-01-29] MEDS ORDERED: ATOR20TA58 PO (01:02)
[2018-01-29] MEDS ORDERED: ASPI-612 PO (01:02)
[2018-01-29] MEDS ORDERED: ACET325T9 PO (01:02)
[2018-01-29] MEDS ORDERED: SENN8.6T99 PO (01:02)
[2018-01-29] MEDS ORDERED: MEMA14CA5 PO (01:02)
[2018-01-29] MEDS ORDERED: DIVA250T PO (01:02)
[2018-01-29] MEDS ORDERED: CARB1TAB2 PO (01:02)
[2018-01-29] MEDS ORDERED: MULT-658 PO (01:02)
[2018-01-29] MEDS ORDERED: CHOL2000 PO (01:02)
[2018-01-29] MEDS ORDERED: ASCO500T3 PO (01:02)
[2018-01-29] MEDS: amLODIPine BESYLATE 2.5 MG TABLET PO SCH (09:00)
--- NOTE | 2018-01-29 13:58 | EKG ---
[facility] [address] [place] [address] Test Date: 2018-01-28 Test Time: 19:02:31 Pat Name: SANTOS URBAN Department: Room: 586 1 Gender: F [employer]: ROBYN : 1945 Requested By: KRISTOPHER FRANKLIN Order Number: [id number] Reading MD: Nikko Lee Measurements Intervals [place] Rate: 82 P: 90 NM: 164 QRS: -3 QRSD: 84 T: 85 QT: 372 QTc: 438 Interpretive Statements SINUS RHYTHM ATRIAL PREMATURE COMPLEX(ES) LEFT ATRIAL ABNORMALITY LEFTWARD AXIS QRS(T) CONTOUR ABNORMALITY CONSISTENT WITH ANTEROSEPTAL INFARCT PROBABLY OLD CONSIDER INFERIOR MYOCARDIAL DAMAGE T ABNORMALITY IN HIGH LATERAL LEADS ABNORMAL ECG Electronically Signed On 01-31-2018 10:58:15 CDT by Nikko Lee
--- NOTE | 2018-01-29 14:03 | PDOC ---
PROGRESS NOTES Chief Complaint Chief Complaint fall at skilled nursing chin laceration advanced dementia w. 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 History of Present Illness History of Present Illness DNR, supportive care try PT and OT, but will return to residential care, Vitals Vitals Vital Signs Date Time Temp Pulse Resp B/P (MAP) Pulse Ox O2 Delivery O2 Flow Rate FiO2 01/29/18 11:00 98.2 76 20 124/56 (78) 100 Room Air 98.2 Physical Exam Physical Exam lethargic today, hard to wake up, follows some commands only General: No acute distress, Other (disorented) Extremities: No clubbing, No edema, Normal pulses, Other (frail, weak) Skin: No rashes, No significant lesion Labs LABS Laboratory Tests Test 01/28/18 19:08 01/28/18 20:45 01/29/18 00:30 01/29/18 01:00 White Blood Count 6.3 x10^3/uL (4.0-11.0) Red Blood Count 4.32 x10^6/uL (3.50-5.40) Hemoglobin 13.3 g/dL (12.0-15.5) Hematocrit 39.3 % (36.0-47.0) Mean Corpuscular Volume 91 fL (79-100) Mean Corpuscular Hemoglobin 31 pg (25-35) Mean Corpuscular Hemoglobin Concent 34 g/dL (31-37) Red Cell Distribution Width 15.1 % (11.5-14.5) Platelet Count 170 x10^3/uL (140-400) Neutrophils (%) (Auto) 66 % (31-73) Lymphocytes (%) (Auto) 21 % (24-48) Monocytes (%) (Auto) 11 % (0-9) Eosinophils (%) (Auto) 1 % (0-3) Basophils (%) (Auto) 1 % (0-3) Neutrophils # (Auto) 4.2 x10^3uL (1.8-7.7) Lymphocytes # (Auto) 1.3 x10^3/uL (1.0-4.8) Monocytes # (Auto) 0.7 x10^3/uL (0.0-1.1) Eosinophils # (Auto) 0.1 x10^3/uL (0.0-0.7) Basophils # (Auto) 0.0 x10^3/uL (0.0-0.2) Prothrombin Time 13.7 SEC (11.7-14.0) Prothromb Time International Ratio 1.1 (0.8-1.1) Activated Partial Thromboplast Time 25 SEC (24-38) Sodium Level 145 mmol/L (136-145) Potassium Level 4.1 mmol/L (3.5-5.1) Chloride Level 106 mmol/L (98-107) Carbon Dioxide Level 33 mmol/L (21-32) Anion Gap 6 (6-14) Blood Urea Nitrogen 21 mg/dL (7-20) Creatinine 0.8 mg/dL (0.6-1.0) Estimated GFR (Cockcroft-Gault) 70.3 BUN/Creatinine Ratio 26 (6-20) Glucose Level 147 mg/dL (70-99) Lactic Acid Level 2.1 mmol/L (0.4-2.0) 1.6 mmol/L (0.4-2.0) Calcium Level 9.8 mg/dL (8.5-10.1) Magnesium Level 2.3 mg/dL (1.8-2.4) Total Bilirubin 0.3 mg/dL (0.2-1.0) Aspartate Amino Transf (AST/SGOT) 16 U/L (15-37) Alanine Aminotransferase (ALT/SGPT) 7 U/L (14-59) Alkaline Phosphatase 85 U/L (46-116) Creatine Kinase 112 U/L (26-192) Troponin I Quantitative < 0.017 ng/mL (0.000-0.055) < 0.017 ng/mL (0.000-0.055) Total Protein 6.6 g/dL (6.4-8.2) Albumin 3.4 g/dL (3.4-5.0) Albumin/Globulin Ratio 1.1 (1.0-1.7) Valproic Acid (Depakene) Level 71 mcg/mL (50-100) Valproic Acid Last Dose Date Unknown Valproic Acid Last Dose Time Unknown Urine Collection Type U cath Urine Color Yellow Urine Clarity Clear Urine pH 7.0 Urine Specific [place] 1.020 Urine Protein 30 mg/dL (NEG-TRACE) Urine Glucose (UA) Negative mg/dL (NEG) Urine Ketones (Stick) Trace mg/dL (NEG) Urine Blood Moderate (NEG) Urine Nitrite Positive (NEG) Urine Bilirubin Negative (NEG) Urine Urobilinogen Dipstick 0.2 mg/dL (0.2 mg/dL) Urine Leukocyte Esterase Large (NEG) Urine RBC 6-10 /HPF (0-2) Urine WBC >40 /HPF (0-4) Urine Squamous Epithelial Cells Occ /LPF Urine Bacteria Many /HPF (0-FEW) Test 01/29/18 03:00 Troponin I Quantitative < 0.017 ng/mL (0.000-0.055) Comment Review of Relevant I have reviewed the following items bruno (where applicable) has been applied. Labs Laboratory Tests Test 01/28/18 19:08 01/28/18 20:45 01/29/18 00:30 01/29/18 01:00 White Blood Count 6.3 x10^3/uL (4.0-11.0) Red Blood Count 4.32 x10^6/uL (3.50-5.40) Hemoglobin 13.3 g/dL (12.0-15.5) Hematocrit 39.3 % (36.0-47.0) Mean Corpuscular Volume 91 fL (79-100) Mean Corpuscular Hemoglobin 31 pg (25-35) Mean Corpuscular Hemoglobin Concent 34 g/dL (31-37) Red Cell Distribution Width 15.1 % (11.5-14.5) Platelet Count 170 x10^3/uL (140-400) Neutrophils (%) (Auto) 66 % (31-73) Lymphocytes (%) (Auto) 21 % (24-48) Monocytes (%) (Auto) 11 % (0-9) Eosinophils (%) (Auto) 1 % (0-3) Basophils (%) (Auto) 1 % (0-3) Neutrophils # (Auto) 4.2 x10^3uL (1.8-7.7) Lymphocytes # (Auto) 1.3 x10^3/uL (1.0-4.8) Monocytes # (Auto) 0.7 x10^3/uL (0.0-1.1) Eosinophils # (Auto) 0.1 x10^3/uL (0.0-0.7) Basophils # (Auto) 0.0 x10^3/uL (0.0-0.2) Prothrombin Time 13.7 SEC (11.7-14.0) Prothromb Time International Ratio 1.1 (0.8-1.1) Activated Partial Thromboplast Time 25 SEC (24-38) Sodium Level 145 mmol/L (136-145) Potassium Level 4.1 mmol/L (3.5-5.1) Chloride Level 106 mmol/L (98-107) Carbon Dioxide Level 33 mmol/L (21-32) Anion Gap 6 (6-14) Blood Urea Nitrogen 21 mg/dL (7-20) Creatinine 0.8 mg/dL (0.6-1.0) Estimated GFR (Cockcroft-Gault) 70.3 BUN/Creatinine Ratio 26 (6-20) Glucose Level 147 mg/dL (70-99) Lactic Acid Level 2.1 mmol/L (0.4-2.0) 1.6 mmol/L (0.4-2.0) Calcium Level 9.8 mg/dL (8.5-10.1) Magnesium Level 2.3 mg/dL (1.8-2.4) Total Bilirubin 0.3 mg/dL (0.2-1.0) Aspartate Amino Transf (AST/SGOT) 16 U/L (15-37) Alanine Aminotransferase (ALT/SGPT) 7 U/L (14-59) Alkaline Phosphatase 85 U/L (46-116) Creatine Kinase 112 U/L (26-192) Troponin I Quantitative < 0.017 ng/mL (0.000-0.055) < 0.017 ng/mL (0.000-0.055) Total Protein 6.6 g/dL (6.4-8.2) Albumin 3.4 g/dL (3.4-5.0) Albumin/Globulin Ratio 1.1 (1.0-1.7) Valproic Acid (Depakene) Level 71 mcg/mL (50-100) Valproic Acid Last Dose Date Unknown Valproic Acid Last Dose Time Unknown Urine Collection Type U cath Urine Color Yellow Urine Clarity Clear Urine pH 7.0 Urine Specific [place] 1.020 Urine Protein 30 mg/dL (NEG-TRACE) Urine Glucose (UA) Negative mg/dL (NEG) Urine Ketones (Stick) Trace mg/dL (NEG) Urine Blood Moderate (NEG) Urine Nitrite Positive (NEG) Urine Bilirubin Negative (NEG) Urine Urobilinogen Dipstick 0.2 mg/dL (0.2 mg/dL) Urine Leukocyte Esterase Large (NEG) Urine RBC 6-10 /HPF (0-2) Urine WBC >40 /HPF (0-4) Urine Squamous Epithelial Cells Occ /LPF Urine Bacteria Many /HPF (0-FEW) Test 01/29/18 03:00 Troponin I Quantitative < 0.017 ng/mL (0.000-0.055) Laboratory Tests Test 01/28/18 19:08 01/28/18 20:45 01/29/18 00:30 01/29/18 01:00 White Blood Count 6.3 x10^3/uL (4.0-11.0) Red Blood Count 4.32 x10^6/uL (3.50-5.40) Hemoglobin 13.3 g/dL (12.0-15.5) Hematocrit 39.3 % (36.0-47.0) Mean Corpuscular Volume 91 fL (79-100) Mean Corpuscular Hemoglobin 31 pg (25-35) Mean Corpuscular Hemoglobin Concent 34 g/dL (31-37) Red Cell Distribution Width 15.1 % (11.5-14.5) Platelet Count 170 x10^3/uL (140-400) Neutrophils (%) (Auto) 66 % (31-73) Lymphocytes (%) (Auto) 21 % (24-48) Monocytes (%) (Auto) 11 % (0-9) Eosinophils (%) (Auto) 1 % (0-3) Basophils (%) (Auto) 1 % (0-3) Neutrophils # (Auto) 4.2 x10^3uL (1.8-7.7) Lymphocytes # (Auto) 1.3 x10^3/uL (1.0-4.8) Monocytes # (Auto) 0.7 x10^3/uL (0.0-1.1) Eosinophils # (Auto) 0.1 x10^3/uL (0.0-0.7) Basophils # (Auto) 0.0 x10^3/uL (0.0-0.2) Prothrombin Time 13.7 SEC (11.7-14.0) Prothromb Time International Ratio 1.1 (0.8-1.1) Activated Partial Thromboplast Time 25 SEC (24-38) Sodium Level 145 mmol/L (136-145) Potassium Level 4.1 mmol/L (3.5-5.1) Chloride Level 106 mmol/L (98-107) Carbon Dioxide Level 33 mmol/L (21-32) Anion Gap 6 (6-14) Blood Urea Nitrogen 21 mg/dL (7-20) Creatinine 0.8 mg/dL (0.6-1.0) Estimated GFR (Cockcroft-Gault) 70.3 BUN/Creatinine Ratio 26 (6-20) Glucose Level 147 mg/dL (70-99) Lactic Acid Level 2.1 mmol/L (0.4-2.0) 1.6 mmol/L (0.4-2.0) Calcium Level 9.8 mg/dL (8.5-10.1) Magnesium Level 2.3 mg/dL (1.8-2.4) Total Bilirubin 0.3 mg/dL (0.2-1.0) Aspartate Amino Transf (AST/SGOT) 16 U/L (15-37) Alanine Aminotransferase (ALT/SGPT) 7 U/L (14-59) Alkaline Phosphatase 85 U/L (46-116) Creatine Kinase 112 U/L (26-192) Troponin I Quantitative < 0.017 ng/mL (0.000-0.055) < 0.017 ng/mL (0.000-0.055) Total Protein 6.6 g/dL (6.4-8.2) Albumin 3.4 g/dL (3.4-5.0) Albumin/Globulin Ratio 1.1 (1.0-1.7) Valproic Acid (Depakene) Level 71 mcg/mL (50-100) Valproic Acid Last Dose Date Unknown Valproic Acid Last Dose Time Unknown Urine Collection Type U cath Urine Color Yellow Urine Clarity Clear Urine pH 7.0 Urine Specific [place] 1.020 Urine Protein 30 mg/dL (NEG-TRACE) Urine Glucose (UA) Negative mg/dL (NEG) Urine Ketones (Stick) Trace mg/dL (NEG) Urine Blood Moderate (NEG) Urine Nitrite Positive (NEG) Urine Bilirubin Negative (NEG) Urine Urobilinogen Dipstick 0.2 mg/dL (0.2 mg/dL) Urine Leukocyte Esterase Large (NEG) Urine RBC 6-10 /HPF (0-2) Urine WBC >40 /HPF (0-4) Urine Squamous Epithelial Cells Occ /LPF Urine Bacteria Many /HPF (0-FEW) Test 01/29/18 03:00 Troponin I Quantitative < 0.017 ng/mL (0.000-0.055) Medications Current Medications Sodium Chloride 1,000 ml @ 1,000 mls/hr 1X ONCE IV Last administered on at 19:50; Start 01/28/18 at 19:15; Stop 01/28/18 at 20:14; Status DC Lidocaine/ Epinephrine (LIDOCAINE 2%-EPI 1:100,000 multi-dose) 20 ml 1X ONCE IJ Last administered on 01/28/18at 19:50; Start 01/28/18 at 19:15; Stop at 19:16; Status DC Neomycin/ Polymyxin/ Bacitracin (Triple Antibiotic Ointment) 1 pkt 1X ONCE TP Last administered on 01/28/18at 20:50; Start 01/28/18 at 19:15; Stop 01/28/18 at 19:16; Status DC Diphtheria/ Tetanus/Acell Pertussis (Boostrix) 0.5 ml ONCE ONCE VAX IM Last administered on 01/28/18at 20:50; Start 01/28/18 at 20:00; Stop 01/28/18 at 20:01 ; Status DC Ceftriaxone Sodium 50 ml @ 100 mls/hr 1X ONCE IV Last administered on at 22:16; Start 01/28/18 at 21:30; Stop 01/28/18 at 21:59; Status DC Lorazepam (Ativan) 0.5 mg 1X ONCE IV Last administered on 01/28/18at 22:09; Start 01/28/18 at 22:15; Stop 01/28/18 at 22:16; Status DC Enoxaparin Sodium (Lovenox Per Pharmacy Prophylaxis Dosing) 1 each PRN DAILY PRN MC SEE COMMENTS; Start 01/28/18 at 23:00 Ceftriaxone Sodium 1 gm/ Dextrose 50 ml @ 100 mls/hr Q24H IV ; Start 01/28/18 at 23:15; Status UNV Amlodipine Besylate (Norvasc) 2.5 mg DAILY PO ; Start 01/29/18 at 09:00 Ceftriaxone Sodium (Rocephin) 1 gm Q24H IVP ; Start 01/28/18 at 23:30; Status Cancel Enoxaparin Sodium (Lovenox 30mg Syringe) 30 mg Q24H SQ ; Start 01/28/18 at 23:00 Ceftriaxone Sodium (Rocephin) 1 gm Q24H IVP ; Start 01/29/18 at 21:00 Active Scripts Active Reported Vitamin D (Cholecalciferol (Vitamin D3)) 2,000 Unit Capsule 1 Cap PO DAILY Ascorbic Acid 500 Mg Tablet 500 Mg PO QHS Senokot (Sennosides) 8.6 Mg Tablet 1 Tab PO QHS Memantine HCl ER (Memantine HCl) 14 Mg Cap.spr.24 14 Mg PO DAILY Hydrocodone-Apap 5-325 (Hydrocodone Bit/Acetaminophen) 1 Each Tablet 1 Tab PO PRN Q6HRS PRN Depakote Er (Divalproex Sodium) 250 Mg Tab.er.24h 1 Tab PO BID Centrum Silver Tablet (Multivits-Min/Fa/Lycopene/Lut) 1 Each Tablet 1 Each PO DAILY Sinemet 25-100 Mg Tablet (Carbidopa/Levodopa) 1 Each Tablet 1 Tab PO TID Calcium (Calcium Carbonate) 500 Mg Tablet 2,000 Mg PO DAILY Atorvastatin Calcium 20 Mg Tablet 1 Tab PO DAILY Aspirin Ec (Aspirin) 81 Mg Tablet.dr 1 Tab PO DAILY Tylenol (Acetaminophen) 325 Mg Tablet 2 Tab PO PRN Q4HRS PRN Vitals/I & O Vital Sign - Last 24 Hours 01/28/18 01/28/18 01/28/18 01/28/18 18:40 18:54 19:01 19:16 Temp 97.2 97.2 Pulse 84 60 82 76 Resp 18 16 16 16 B/P (MAP) 105/50 (68) 112/55 (74) 93/43 (60) Pulse Ox 97 98 97 O2 Delivery Room Air Room Air Room Air 01/28/18 01/28/18 01/28/18 01/28/18 19:43 19:46 20:01 20:31 Pulse 80 76 78 78 Resp 19 16 15 23 B/P (MAP) 128/60 (82) 123/60 (81) 120/60 (80) 163/76 (105) Pulse Ox 99 99 99 99 O2 Delivery Room Air 01/28/18 01/28/18 01/28/18 01/28/18 20:46 21:01 21:23 22:00 Pulse 78 80 86 84 Resp 18 20 20 18 B/P (MAP) 167/71 (103) 191/74 (113) 165/75 (105) 163/97 (119) Pulse Ox 99 99 98 99 O2 Delivery Room Air Room Air Room Air 01/28/18 01/28/18 01/28/18 01/29/18 22:30 23:30 23:30 02:35 Temp 97.9 97.9 97.9 97.9 Pulse 88 68 69 Resp 18 15 18 B/P (MAP) 158/97 (117) 145/69 (94) 135/66 (89) Pulse Ox 97 96 95 O2 Delivery Room Air Room Air Room Air 01/29/18 01/29/18 01/29/18 01/29/18 07:00 08:00 08:29 09:00 Temp 98.1 98.1 98.1 98.1 Pulse 67 67 76 Resp 18 18 B/P (MAP) 117/62 (80) 117/62 (80) 124/56 Pulse Ox 92 92 O2 Delivery Room Air Room Air Room Air 01/29/18 11:00 Temp 98.2 98.2 Pulse 76 Resp 20 B/P (MAP) 124/56 (78) Pulse Ox 100 O2 Delivery Room Air Intake and Output 01/28/18 01/28/18 01/29/18 15:00 23:00 07:00 Intake Total 400 ml 0 ml Balance 400 ml 0 ml LORENE ADKINS MD Jan 29, 2018 14:03
[2018-01-29] MEDS ORDERED: HYDROcodone/APAP 5/325MG 1 TAB TABLET PO PRN (20:30)
[2018-01-29] MEDS ORDERED: ACETAMINOPHEN 325 MG TABLET. PO PRN (20:30)
[2018-01-29] MEDS: IV 1/2 NORMAL SALINE 1,000 ML IV SCH (21:25)
[2018-01-29] MEDS: LACTOBACILLUS RHAMNOSUS GG 1 CAPSULE. PO SCH (21:25)
[2018-01-29] MEDS: cefTRIAXone IV Push 1 GM VIAL. IVP SCH (21:25)
[2018-01-29] MEDS: CARBIDOPA/LEVODOPA 25/100MG TABLET PO SCH (21:25)
[2018-01-29] MEDS: MEMANTINE 5 MG TABLET. PO SCH (21:25)
[2018-01-29] MEDS: DIVALPROEX EXTENDED RELEASE 250 MG TAB.ER.24H. PO SCH (21:25)
[2018-01-29] MEDS: SENNOSIDES 8.6 MG TABLET PO SCH (21:25)
[2018-01-29] MEDS: ASCORBIC ACID 500 MG TABLET PO SCH (21:25)
[2018-01-29] MEDS: ATORVASTATIN CALCIUM 20 MG TABLET PO SCH (21:25)
[2018-01-29] MEDS: ENOXAPARIN 30 MG/0.3 ML SYRINGE. SQ SCH (22:41)
[2018-01-30 02:38] VITALS: BP 149/73
[2018-01-30 07:00] VITALS: BP 139/74
[2018-01-30] MEDS: ASPIRIN ENTERIC COATED 81 MG TABLET.DR. PO SCH (08:00)
[2018-01-30] MEDS: CHOLECALCIFEROL (VITAMIN D3) 1,000 UNIT TABLET PO SCH (09:00)
[2018-01-30] MEDS: CALCIUM CARBONATE 500 MG TABLET PO SCH (09:00)
[2018-01-30] MEDS: amLODIPine BESYLATE 2.5 MG TABLET PO SCH (09:00)
[2018-01-30] MEDS: LACTOBACILLUS RHAMNOSUS GG 1 CAPSULE. PO SCH ×2 (09:00→21:40)
[2018-01-30] MEDS: MEMANTINE 5 MG TABLET. PO SCH ×2 (09:00→21:40)
[2018-01-30] MEDS: DIVALPROEX EXTENDED RELEASE 250 MG TAB.ER.24H. PO SCH ×2 (09:00→21:41)
[2018-01-30] MEDS: MULTIVITAMIN I-VITE TABLET. PO SCH (09:00)
[2018-01-30] MEDS: CARBIDOPA/LEVODOPA 25/100MG TABLET PO SCH ×3 (09:00→21:40)
[2018-01-30] MEDS: IV 1/2 NORMAL SALINE 1,000 ML IV SCH ×2 (09:50→23:10)
[2018-01-30 11:07] VITALS: BP 142/70
[2018-01-30] MEDS ORDERED: AMLO2.5T3 PO (11:24)
--- NOTE | 2018-01-30 11:26 | DISCH ---
DISCHARGE DISCHARGE INFORMATION: CONDITION ON DISCHARGE: Stable CODE STATUS: Code Status: DNR/DNI INTERMEDIATE: SNF STAY <30 DAYS: No HOSPICE: HOSPICE: No HOSPICE EVAL & TREAT: No LTAC: ADMIT TO LTAC: No POST DISCHARGE ORDERS: ACTIVITY ORDERS: Activity as tolerated, Avoid exertion WEIGHT BEARING STATUS: Non weight bearing DIET AFTER DISCHARGE: Regular CHECKS AFTER DISCHARGE: CHECKS AFTER DISCHARGE: Check blood press - daily FOLLOW-UP: PHYSICIAN FOLLOW-UP: re BP - new med is norvasc 2.5 PO qD TREATMENT/EQUIPMENT ORDERS: Physical Therapy For: Evalulation/Treatment Occupational Therapy For: Evaluation/Treatment Speech Language Pathology For: Swallow Cognition DISCHARGE MEDICATIONS: Home Meds Active Scripts Amlodipine Besylate (AMLODIPINE BESYLATE) 2.5 Mg Tablet, 2.5 MG PO DAILY for 30 Days, #30 TAB Prov:JANINE ROCHA MD 01/30/18 Reported Medications Cholecalciferol (Vitamin D3) (VITAMIN D) 2,000 Unit Capsule, 1 CAP PO DAILY, # 30 CAP 3 Refills 01/29/18 Ascorbic Acid (ASCORBIC ACID) 500 Mg Tablet, 500 MG PO QHS, TAB 01/29/18 Sennosides (SENOKOT) 8.6 Mg Tablet, 1 TAB PO QHS, #40 TAB 01/29/18 Memantine HCl (Memantine HCl ER) 14 Mg Cap.spr.24, 14 MG PO DAILY, CAP 01/29/18 Hydrocodone Bit/Acetaminophen (HYDROCODONE-APAP 5-325 ) 1 Each Tablet, 1 TAB PO PRN Q6HRS PRN for PAIN, TAB 0 Refills 01/29/18 Divalproex Sodium (DEPAKOTE ER) 250 Mg Tab.er.24h, 1 TAB PO BID, #30 TAB 2 Refills 01/29/18 Multivits-Min/Fa/Lycopene/Lut (CENTRUM SILVER TABLET) 1 Each Tablet, 1 EACH PO DAILY, TAB 01/29/18 Carbidopa/Levodopa (SINEMET 25-100 MG TABLET) 1 Each Tablet, 1 TAB PO TID, TAB 01/29/18 Calcium Carbonate (CALCIUM) 500 Mg Tablet, 2000 MG PO DAILY, TAB 01/29/18 Atorvastatin Calcium (ATORVASTATIN CALCIUM) 20 Mg Tablet, 1 TAB PO DAILY, #30 TAB 5 Refills 01/29/18 Aspirin (ASPIRIN EC) 81 Mg Tablet.dr, 1 TAB PO DAILY, #30 TAB 3 Refills 01/29/18 Acetaminophen (TYLENOL) 325 Mg Tablet, 2 TAB PO PRN Q4HRS PRN for MILD PAIN / TEMP, #30 TAB 01/29/18 JANINE ROCHA MD Jan 30, 2018 11:26
[2018-01-30] MEDS ORDERED: DRON2.5C PO (11:28)
--- NOTE | 2018-01-30 11:29 | PDOC ---
PROGRESS NOTES Chief Complaint Chief Complaint fall at senior care chin laceration advanced dementia w. acute on chronic encephalopathy from UTI concussion, post concussive complicated UTI malnutrition, with BMI 14.5 History of Present Illness History of Present Illness Still waiting on urine cultures- chin laceration, has a couple stitches, usually stay 7-10 days then can be taken out safely in SNU Patient is a DNR Patient is confused, history of dementia with Parkinson's Home meds reviewed BMI is only 14 Poor by mouth Plan: trial of Marinol Home meds have been reconciled Back to SNU with by mouth antibiotics once urine culture is out Outside DNR form signed and Rx on chart Vitals Vitals Vital Signs Date Time Temp Pulse Resp B/P (MAP) Pulse Ox O2 Delivery O2 Flow Rate FiO2 01/30/18 11:07 97.9 80 18 142/70 (94) 98 Room Air 97.9 Physical Exam Physical Exam lethargic today, hard to wake up, follows some commands only General: Cooperative, No acute distress, Other (disorented) Heart: Regular rate, Normal S1, Normal S2 Lungs: Wheezing Abdomen: Normal bowel sounds, Soft Extremities: No clubbing, No edema, Normal pulses, Other (frail, weak) Skin: No rashes, No significant lesion Review of Systems Review of Systems dememntia hence limited ROS Comment Review of Relevant I have reviewed the following items bruno (where applicable) has been applied. Labs Laboratory Tests Test 01/28/18 19:08 01/28/18 20:45 01/29/18 00:30 01/29/18 00:48 White Blood Count 6.3 x10^3/uL (4.0-11.0) Red Blood Count 4.32 x10^6/uL (3.50-5.40) Hemoglobin 13.3 g/dL (12.0-15.5) Hematocrit 39.3 % (36.0-47.0) Mean Corpuscular Volume 91 fL (79-100) Mean Corpuscular Hemoglobin 31 pg (25-35) Mean Corpuscular Hemoglobin Concent 34 g/dL (31-37) Red Cell Distribution Width 15.1 % (11.5-14.5) Platelet Count 170 x10^3/uL (140-400) Neutrophils (%) (Auto) 66 % (31-73) Lymphocytes (%) (Auto) 21 % (24-48) Monocytes (%) (Auto) 11 % (0-9) Eosinophils (%) (Auto) 1 % (0-3) Basophils (%) (Auto) 1 % (0-3) Neutrophils # (Auto) 4.2 x10^3uL (1.8-7.7) Lymphocytes # (Auto) 1.3 x10^3/uL (1.0-4.8) Monocytes # (Auto) 0.7 x10^3/uL (0.0-1.1) Eosinophils # (Auto) 0.1 x10^3/uL (0.0-0.7) Basophils # (Auto) 0.0 x10^3/uL (0.0-0.2) Prothrombin Time 13.7 SEC (11.7-14.0) Prothromb Time International Ratio 1.1 (0.8-1.1) Activated Partial Thromboplast Time 25 SEC (24-38) Sodium Level 145 mmol/L (136-145) Potassium Level 4.1 mmol/L (3.5-5.1) Chloride Level 106 mmol/L (98-107) Carbon Dioxide Level 33 mmol/L (21-32) Anion Gap 6 (6-14) Blood Urea Nitrogen 21 mg/dL (7-20) Creatinine 0.8 mg/dL (0.6-1.0) Estimated GFR (Cockcroft-Gault) 70.3 BUN/Creatinine Ratio 26 (6-20) Glucose Level 147 mg/dL (70-99) Lactic Acid Level 2.1 mmol/L (0.4-2.0) 1.6 mmol/L (0.4-2.0) Calcium Level 9.8 mg/dL (8.5-10.1) Magnesium Level 2.3 mg/dL (1.8-2.4) Total Bilirubin 0.3 mg/dL (0.2-1.0) Aspartate Amino Transf (AST/SGOT) 16 U/L (15-37) Alanine Aminotransferase (ALT/SGPT) 7 U/L (14-59) Alkaline Phosphatase 85 U/L (46-116) Creatine Kinase 112 U/L (26-192) Troponin I Quantitative < 0.017 ng/mL (0.000-0.055) Total Protein 6.6 g/dL (6.4-8.2) Albumin 3.4 g/dL (3.4-5.0) Albumin/Globulin Ratio 1.1 (1.0-1.7) Valproic Acid (Depakene) Level 71 mcg/mL (50-100) Valproic Acid Last Dose Date Unknown Valproic Acid Last Dose Time Unknown Urine Collection Type U cath Urine Color Yellow Urine Clarity Clear Urine pH 7.0 Urine Specific [place] 1.020 Urine Protein 30 mg/dL (NEG-TRACE) Urine Glucose (UA) Negative mg/dL (NEG) Urine Ketones (Stick) Trace mg/dL (NEG) Urine Blood Moderate (NEG) Urine Nitrite Positive (NEG) Urine Bilirubin Negative (NEG) Urine Urobilinogen Dipstick 0.2 mg/dL (0.2 mg/dL) Urine Leukocyte Esterase Large (NEG) Urine RBC 6-10 /HPF (0-2) Urine WBC >40 /HPF (0-4) Urine Squamous Epithelial Cells Occ /LPF Urine Bacteria Many /HPF (0-FEW) Nasal Screen MRSA (PCR) Negative (Negative) Test 01/29/18 01:00 01/29/18 03:00 Troponin I Quantitative < 0.017 ng/mL (0.000-0.055) < 0.017 ng/mL (0.000-0.055) Medications Current Medications Sodium Chloride 1,000 ml @ 1,000 mls/hr 1X ONCE IV Last administered on at 19:50; Start 01/28/18 at 19:15; Stop 01/28/18 at 20:14; Status DC Lidocaine/ Epinephrine (LIDOCAINE 2%-EPI 1:100,000 multi-dose) 20 ml 1X ONCE IJ Last administered on 01/28/18at 19:50; Start 01/28/18 at 19:15; Stop at 19:16; Status DC Neomycin/ Polymyxin/ Bacitracin (Triple Antibiotic Ointment) 1 pkt 1X ONCE TP Last administered on 01/28/18at 20:50; Start 01/28/18 at 19:15; Stop 01/28/18 at 19:16; Status DC Diphtheria/ Tetanus/Acell Pertussis (Boostrix) 0.5 ml ONCE ONCE VAX IM Last administered on 01/28/18at 20:50; Start 01/28/18 at 20:00; Stop 01/28/18 at 20:01 ; Status DC Ceftriaxone Sodium 50 ml @ 100 mls/hr 1X ONCE IV Last administered on at 22:16; Start 01/28/18 at 21:30; Stop 01/28/18 at 21:59; Status DC Lorazepam (Ativan) 0.5 mg 1X ONCE IV Last administered on 01/28/18at 22:09; Start 01/28/18 at 22:15; Stop 01/28/18 at 22:16; Status DC Enoxaparin Sodium (Lovenox Per Pharmacy Prophylaxis Dosing) 1 each PRN DAILY PRN MC SEE COMMENTS; Start 01/28/18 at 23:00 Ceftriaxone Sodium 1 gm/ Dextrose 50 ml @ 100 mls/hr Q24H IV ; Start 01/28/18 at 23:15; Status UNV Amlodipine Besylate (Norvasc) 2.5 mg DAILY PO ; Start 01/29/18 at 09:00 Ceftriaxone Sodium (Rocephin) 1 gm Q24H IVP ; Start 01/28/18 at 23:30; Status Cancel Enoxaparin Sodium (Lovenox 30mg Syringe) 30 mg Q24H SQ Last administered on at 22:41; Start 01/28/18 at 23:00 Ceftriaxone Sodium (Rocephin) 1 gm Q24H IVP Last administered on 01/29/18at 21: 25; Start 01/29/18 at 21:00 Acetaminophen (Tylenol) 650 mg PRN Q4HRS PRN PO HEADACHE / TEMP; Start at 20:30 Ascorbic Acid (Vitamin C) 500 mg QHS PO ; Start 01/29/18 at 21:00 Aspirin (Ecotrin) 81 mg DAILY08 PO ; Start 01/30/18 at 08:00 Atorvastatin Calcium (Lipitor) 20 mg QHS PO ; Start 01/29/18 at 21:00 Calcium Carbonate/ Glycine (Oscal) 2,000 mg DAILY PO ; Start 01/30/18 at 09:00 Carbidopa/Levodopa (Sinemet 25/100) 1 tab TID PO ; Start 01/29/18 at 21:00 Divalproex Sodium (Depakote Er) 250 mg BID PO ; Start 01/29/18 at 21:00 Acetaminophen/ Hydrocodone Bitart (Lortab 5/325) 1 tab PRN Q6HRS PRN PO PAIN MILD TO MODERATE; Start 01/29/18 at 20:30 Vitamin D (Vitamin D3) 1,000 unit DAILY PO ; Start 01/30/18 at 09:00 Memantine (Namenda) 5 mg BID PO ; Start 01/29/18 at 21:00 Multivitamins/ Minerals (I-Mike) 1 tab DAILY PO ; Start 01/30/18 at 09:00 Sennosides (Senna) 8.6 mg QHS PO ; Start 01/29/18 at 21:00 Sodium Chloride 1,000 ml @ 75 mls/hr [id number] IV Last administered on at 09:50; Start 01/29/18 at 20:30 Lactobacillus Rhamnosus (Culturelle) 1 cap BID PO ; Start 01/29/18 at 21:00 Active Scripts Active Amlodipine Besylate 2.5 Mg Tablet 2.5 Mg PO DAILY 30 Days Reported Vitamin D (Cholecalciferol (Vitamin D3)) 2,000 Unit Capsule 1 Cap PO DAILY Ascorbic Acid 500 Mg Tablet 500 Mg PO QHS Senokot (Sennosides) 8.6 Mg Tablet 1 Tab PO QHS Memantine HCl ER (Memantine HCl) 14 Mg Cap.spr.24 14 Mg PO DAILY Hydrocodone-Apap 5-325 (Hydrocodone Bit/Acetaminophen) 1 Each Tablet 1 Tab PO PRN Q6HRS PRN Depakote Er (Divalproex Sodium) 250 Mg Tab.er.24h 1 Tab PO BID Centrum Silver Tablet (Multivits-Min/Fa/Lycopene/Lut) 1 Each Tablet 1 Each PO DAILY Sinemet 25-100 Mg Tablet (Carbidopa/Levodopa) 1 Each Tablet 1 Tab PO TID Calcium (Calcium Carbonate) 500 Mg Tablet 2,000 Mg PO DAILY Atorvastatin Calcium 20 Mg Tablet 1 Tab PO DAILY Aspirin Ec (Aspirin) 81 Mg Tablet.dr 1 Tab PO DAILY Tylenol (Acetaminophen) 325 Mg Tablet 2 Tab PO PRN Q4HRS PRN Vitals/I & O Vital Sign - Last 24 Hours 01/29/18 01/29/18 01/29/18 01/29/18 15:00 19:00 21:46 22:43 Temp 98.1 97.7 98.5 98.1 97.7 98.5 Pulse 77 97 77 Resp 18 18 16 B/P (MAP) 142/70 (94) 156/75 (102) 135/73 (93) Pulse Ox 98 97 99 O2 Delivery Room Air Room Air Room Air Room Air 01/30/18 01/30/18 01/30/18 02:38 07:00 11:07 Temp 98.1 98.1 97.9 98.1 98.1 97.9 Pulse 84 83 80 Resp 18 B/P (MAP) 149/73 (98) 139/74 (95) 142/70 (94) Pulse Ox 99 99 98 O2 Delivery Room Air Room Air Room Air Intake and Output 01/29/18 01/29/18 01/30/18 15:00 23:00 07:00 Intake Total 0 ml 600 ml Balance 0 ml 600 ml JANINE ROCHA MD Jan 30, 2018 11:29
[2018-01-30] MEDS: DRONABINOL 2.5 MG CAPSULE. PO SCH ×2 (11:45→16:30)
[2018-01-30 12:10] LABS: BASO % 1 % (0-3); EOS % 0 % (0-3); HEMATOCRIT 42.5 % (36.0-47.0); HEMOGLOBIN 14.4 g/dL (12.0-15.5); LYMPH # 0.8 x10^3/uL (1.0-4.8); LYMPH % 15 % (24-48); MEAN CORPUSCULAR HEMOGLOBIN 31 pg (25-35); MEAN CORPUSCULAR HGB CONC 34 g/dL (31-37); MEAN CORPUSCULAR VOLUME 91 fL (79-100); MONO # 0.5 x10^3/uL (0.0-1.1); MONO % 9 % (0-9); NEUT # 4.1 x10^3uL (1.8-7.7); NEUT % 75 % (31-73); PLATELET COUNT 170 x10^3/uL (140-400); RED BLOOD COUNT 4.68 x10^6/uL (3.50-5.40); RED CELL DISTRIBUTION WIDTH 15.1 % (11.5-14.5); WHITE BLOOD COUNT 5.5 x10^3/uL (4.0-11.0)
[2018-01-30 12:19] LABS: CALCIUM 9.3 mg/dL (8.5-10.1); CREATININE 0.9 mg/dL (0.6-1.0); GFR 61.4; POTASSIUM 3.6 mmol/L (3.5-5.1)
[2018-01-30 15:06] VITALS: BP 158/72
[2018-01-30 19:00] VITALS: BP 108/66
[2018-01-30] MEDS: cefTRIAXone IV Push 1 GM VIAL. IVP SCH (21:00)
[2018-01-30] MEDS: ASCORBIC ACID 500 MG TABLET PO SCH (21:40)
[2018-01-30] MEDS: SENNOSIDES 8.6 MG TABLET PO SCH (21:40)
[2018-01-30] MEDS: ATORVASTATIN CALCIUM 20 MG TABLET PO SCH (21:40)
[2018-01-30] MEDS: ENOXAPARIN 30 MG/0.3 ML SYRINGE. SQ SCH (21:41)
[2018-01-30 23:00] VITALS: BP 151/78
[2018-01-31 03:00] VITALS: BP 167/87
[2018-01-31 07:00] VITALS: BP 169/82
[2018-01-31] MEDS: LACTOBACILLUS RHAMNOSUS GG 1 CAPSULE. PO SCH ×2 (08:47→20:50)
[2018-01-31] MEDS: ASPIRIN ENTERIC COATED 81 MG TABLET.DR. PO SCH (08:47)
[2018-01-31] MEDS: amLODIPine BESYLATE 2.5 MG TABLET PO SCH (08:48)
[2018-01-31] MEDS: CHOLECALCIFEROL (VITAMIN D3) 1,000 UNIT TABLET PO SCH (08:48)
[2018-01-31] MEDS: CARBIDOPA/LEVODOPA 25/100MG TABLET PO SCH ×3 (08:48→20:49)
[2018-01-31] MEDS: MULTIVITAMIN I-VITE TABLET. PO SCH (08:48)
[2018-01-31] MEDS: MEMANTINE 5 MG TABLET. PO SCH ×2 (08:48→20:49)
[2018-01-31] MEDS: CALCIUM CARBONATE 500 MG TABLET PO SCH (08:48)
[2018-01-31] MEDS: DIVALPROEX EXTENDED RELEASE 250 MG TAB.ER.24H. PO SCH ×2 (08:48→20:50)
[2018-01-31 11:00] VITALS: BP 116/61
--- NOTE | 2018-01-31 11:58 | PDOC ---
PROGRESS NOTES Chief Complaint Chief Complaint GNR UTI-identification and sensitivities pending fall at [facility] chin laceration s/p sutures concussion, post concussive complicated UTI malnutrition, with BMI 14.5 History of Present Illness History of Present Illness GNR UTI on urine culture but ID and sensitivities are still pending She is up at the nurses station because of agitation She lost IV line Sensitivities will be out tomorrow Plan: start by mouth Cipro Follow-up ID and sensitivities tomorrow Ativan now then when necessary, oral DNR Supportive care High fall risk Vitals Vitals Vital Signs Date Time Temp Pulse Resp B/P (MAP) Pulse Ox O2 Delivery O2 Flow Rate FiO2 01/31/18 11:00 98.1 100 18 116/61 (79) 97 Room Air 98.1 Physical Exam Physical Exam lethargic today, hard to wake up, follows some commands only General: Cooperative, No acute distress, Other (disorented) Heart: Regular rate, Normal S1, Normal S2 Lungs: Wheezing Abdomen: Normal bowel sounds, Soft Extremities: No clubbing, No edema, Normal pulses, Other (frail, weak) Skin: No rashes, No significant lesion Review of Systems Review of Systems Confused Comment Review of Relevant I have reviewed the following items bruno (where applicable) has been applied. Labs Laboratory Tests Test 01/30/18 11:35 White Blood Count 5.5 x10^3/uL (4.0-11.0) Red Blood Count 4.68 x10^6/uL (3.50-5.40) Hemoglobin 14.4 g/dL (12.0-15.5) Hematocrit 42.5 % (36.0-47.0) Mean Corpuscular Volume 91 fL (79-100) Mean Corpuscular Hemoglobin 31 pg (25-35) Mean Corpuscular Hemoglobin Concent 34 g/dL (31-37) Red Cell Distribution Width 15.1 % (11.5-14.5) Platelet Count 170 x10^3/uL (140-400) Neutrophils (%) (Auto) 75 % (31-73) Lymphocytes (%) (Auto) 15 % (24-48) Monocytes (%) (Auto) 9 % (0-9) Eosinophils (%) (Auto) 0 % (0-3) Basophils (%) (Auto) 1 % (0-3) Neutrophils # (Auto) 4.1 x10^3uL (1.8-7.7) Lymphocytes # (Auto) 0.8 x10^3/uL (1.0-4.8) Monocytes # (Auto) 0.5 x10^3/uL (0.0-1.1) Eosinophils # (Auto) 0.0 x10^3/uL (0.0-0.7) Basophils # (Auto) 0.0 x10^3/uL (0.0-0.2) Erythrocyte Sedimentation Rate 5 (0-25) Sodium Level 143 mmol/L (136-145) Potassium Level 3.6 mmol/L (3.5-5.1) Chloride Level 103 mmol/L (98-107) Carbon Dioxide Level 28 mmol/L (21-32) Anion Gap 12 (6-14) Blood Urea Nitrogen 17 mg/dL (7-20) Creatinine 0.9 mg/dL (0.6-1.0) Estimated GFR (Cockcroft-Gault) 61.4 Glucose Level 84 mg/dL (70-99) Calcium Level 9.3 mg/dL (8.5-10.1) Microbiology 01/28/18 Urine Culture - Preliminary, Resulted 01/28/18 Urine Culture Result 1 (STEVE) - Preliminary, Resulted Medications Current Medications Sodium Chloride 1,000 ml @ 1,000 mls/hr 1X ONCE IV Last administered on at 19:50; Start 01/28/18 at 19:15; Stop 01/28/18 at 20:14; Status DC Lidocaine/ Epinephrine (LIDOCAINE 2%-EPI 1:100,000 multi-dose) 20 ml 1X ONCE IJ Last administered on 01/28/18at 19:50; Start 01/28/18 at 19:15; Stop at 19:16; Status DC Neomycin/ Polymyxin/ Bacitracin (Triple Antibiotic Ointment) 1 pkt 1X ONCE TP Last administered on 01/28/18at 20:50; Start 01/28/18 at 19:15; Stop 01/28/18 at 19:16; Status DC Diphtheria/ Tetanus/Acell Pertussis (Boostrix) 0.5 ml ONCE ONCE VAX IM Last administered on 01/28/18at 20:50; Start 01/28/18 at 20:00; Stop 01/28/18 at 20:01 ; Status DC Ceftriaxone Sodium 50 ml @ 100 mls/hr 1X ONCE IV Last administered on at 22:16; Start 01/28/18 at 21:30; Stop 01/28/18 at 21:59; Status DC Lorazepam (Ativan) 0.5 mg 1X ONCE IV Last administered on 01/28/18at 22:09; Start 01/28/18 at 22:15; Stop 01/28/18 at 22:16; Status DC Enoxaparin Sodium (Lovenox Per Pharmacy Prophylaxis Dosing) 1 each PRN DAILY PRN MC SEE COMMENTS; Start 01/28/18 at 23:00 Ceftriaxone Sodium 1 gm/ Dextrose 50 ml @ 100 mls/hr Q24H IV ; Start 01/28/18 at 23:15; Status UNV Amlodipine Besylate (Norvasc) 2.5 mg DAILY PO Last administered on 01/31/18at 08 :48; Start 01/29/18 at 09:00 Ceftriaxone Sodium (Rocephin) 1 gm Q24H IVP ; Start 01/28/18 at 23:30; Status Cancel Enoxaparin Sodium (Lovenox 30mg Syringe) 30 mg Q24H SQ Last administered on at 21:41; Start 01/28/18 at 23:00 Ceftriaxone Sodium (Rocephin) 1 gm Q24H IVP Last administered on 01/29/18at 21: 25; Start 01/29/18 at 21:00 Acetaminophen (Tylenol) 650 mg PRN Q4HRS PRN PO HEADACHE / TEMP; Start at 20:30 Ascorbic Acid (Vitamin C) 500 mg QHS PO Last administered on 01/30/18at 21:40; Start 01/29/18 at 21:00 Aspirin (Ecotrin) 81 mg DAILY08 PO Last administered on 01/31/18at 08:47; Start 01/30/18 at 08:00 Atorvastatin Calcium (Lipitor) 20 mg QHS PO Last administered on 01/30/18at 21: 40; Start 01/29/18 at 21:00 Calcium Carbonate/ Glycine (Oscal) 2,000 mg DAILY PO Last administered on at 08:48; Start 01/30/18 at 09:00 Carbidopa/Levodopa (Sinemet 25/100) 1 tab TID PO Last administered on 08:48; Start 01/29/18 at 21:00 Divalproex Sodium (Depakote Er) 250 mg BID PO Last administered on 01/31/18 08 :48; Start 01/29/18 at 21:00 Acetaminophen/ Hydrocodone Bitart (Lortab 5/325) 1 tab PRN Q6HRS PRN PO PAIN MILD TO MODERATE; Start 01/29/18 at 20:30 Vitamin D (Vitamin D3) 1,000 unit DAILY PO Last administered on 01/31/18 08:48 ; Start 01/30/18 at 09:00 Memantine (Namenda) 5 mg BID PO Last administered on 01/31/18 08:48; Start at 21:00 Multivitamins/ Minerals (I-Mike) 1 tab DAILY PO Last administered on 01/31/18 08:48; Start 01/30/18 at 09:00 Sennosides (Senna) 8.6 mg QHS PO Last administered on 01/30/18 21:40; Start at 21:00 Sodium Chloride 1,000 ml @ 75 mls/hr [id number] IV Last administered on 09:50; Start 01/29/18 at 20:30 Lactobacillus Rhamnosus (Culturelle) 1 cap BID PO Last administered on 08:47; Start 01/29/18 at 21:00 Dronabinol (Marinol) 2.5 mg BIDACLD PO Last administered on 01/30/18at 11:45; Start 01/30/18 at 11:45 Active Scripts Active Marinol (Dronabinol) 2.5 Mg Capsule 2.5 Mg PO BID 30 Days Amlodipine Besylate 2.5 Mg Tablet 2.5 Mg PO DAILY 30 Days Reported Vitamin D (Cholecalciferol (Vitamin D3)) 2,000 Unit Capsule 1 Cap PO DAILY Ascorbic Acid 500 Mg Tablet 500 Mg PO QHS Senokot (Sennosides) 8.6 Mg Tablet 1 Tab PO QHS Memantine HCl ER (Memantine HCl) 14 Mg Cap.spr.24 14 Mg PO DAILY Hydrocodone-Apap 5-325 (Hydrocodone Bit/Acetaminophen) 1 Each Tablet 1 Tab PO PRN Q6HRS PRN Depakote Er (Divalproex Sodium) 250 Mg Tab.er.24h 1 Tab PO BID Centrum Silver Tablet (Multivits-Min/Fa/Lycopene/Lut) 1 Each Tablet 1 Each PO DAILY Sinemet 25-100 Mg Tablet (Carbidopa/Levodopa) 1 Each Tablet 1 Tab PO TID Calcium (Calcium Carbonate) 500 Mg Tablet 2,000 Mg PO DAILY Atorvastatin Calcium 20 Mg Tablet 1 Tab PO DAILY Aspirin Ec (Aspirin) 81 Mg Tablet. 1 Tab PO DAILY Tylenol (Acetaminophen) 325 Mg Tablet 2 Tab PO PRN Q4HRS PRN Vitals/I & O Vital Sign - Last 24 Hours 01/30/18 01/30/18 01/30/18 01/31/18 15:06 19:00 23:00 03:00 Temp 98.0 98.1 98.7 98.6 98.0 98.1 98.7 98.6 Pulse 80 72 85 91 Resp 18 16 18 20 B/P (MAP) 158/72 (100) 108/66 (80) 151/78 (102) 167/87 (113) Pulse Ox 98 98 98 98 O2 Delivery Room Air Room Air Room Air Room Air 01/31/18 01/31/18 01/31/18 07:00 08:48 11:00 Temp 98.0 98.1 98.0 98.1 Pulse 94 94 100 Resp 18 18 B/P (MAP) 169/82 (111) 169/82 116/61 (79) Pulse Ox 98 97 O2 Delivery Room Air Room Air Intake and Output 01/30/18 01/30/18 01/31/18 15:00 23:00 07:00 Intake Total 350 ml Balance 350 ml JANINE ROCHA MD Jan 31, 2018 11:58
[2018-01-31] MEDS ORDERED: LORazepam 1 MG TABLET PO ONE (12:00)
[2018-01-31] MEDS: DRONABINOL 2.5 MG CAPSULE. PO SCH ×2 (12:18→17:05)
[2018-01-31 15:00] VITALS: BP 134/68
[2018-01-31] MEDS: LORazepam 0.5 MG TABLET PO PRN ×2 (15:14→20:49)
[2018-01-31 19:00] VITALS: BP 136/74
[2018-01-31] MEDS: SENNOSIDES 8.6 MG TABLET PO SCH (20:49)
[2018-01-31] MEDS: ASCORBIC ACID 500 MG TABLET PO SCH (20:49)
[2018-01-31] MEDS: ATORVASTATIN CALCIUM 20 MG TABLET PO SCH (20:50)
[2018-01-31] MEDS: CIPROFLOXACIN HCL 250 MG TABLET. PO SCH (20:50)
[2018-01-31] MEDS: ENOXAPARIN 30 MG/0.3 ML SYRINGE. SQ SCH (20:51)
[2018-01-31 23:00] VITALS: BP 130/70
[2018-02-01 03:00] VITALS: BP 138/80
[2018-02-01] MEDS: ASPIRIN ENTERIC COATED 81 MG TABLET.DR. PO SCH (08:57)
[2018-02-01] MEDS: CIPROFLOXACIN HCL 250 MG TABLET. PO SCH (08:57)
[2018-02-01] MEDS: MULTIVITAMIN I-VITE TABLET. PO SCH (08:58)
[2018-02-01] MEDS: LACTOBACILLUS RHAMNOSUS GG 1 CAPSULE. PO SCH (08:58)
[2018-02-01] MEDS: CHOLECALCIFEROL (VITAMIN D3) 1,000 UNIT TABLET PO SCH (08:58)
[2018-02-01] MEDS: LORazepam 0.5 MG TABLET PO PRN (08:58)
[2018-02-01] MEDS: DIVALPROEX EXTENDED RELEASE 250 MG TAB.ER.24H. PO SCH (08:58)
[2018-02-01] MEDS: CALCIUM CARBONATE 500 MG TABLET PO SCH (08:59)
[2018-02-01] MEDS: CARBIDOPA/LEVODOPA 25/100MG TABLET PO SCH (08:59)
[2018-02-01] MEDS: amLODIPine BESYLATE 2.5 MG TABLET PO SCH (09:00)
[2018-02-01] MEDS: MEMANTINE 5 MG TABLET. PO SCH (09:01)
[2018-02-01 11:00] VITALS: BP 138/79
--- NOTE | 2018-02-01 11:02 | PDOC3 ---
Discharge Summary Visit Information Date of Admission: Jan 28, 2018 Date of Discharge: Feb 01, 2018 Admitting Diagnosis Comment: 72-year-old female, [facility] resident A fall in [facility]. Sustained a chin laceration and needed a couple sutures at the ER. But admitted because of UTI. It took 6 days for urine culture and sensitivities to come out. It did grow GNR/Escherichia coli UTI almost sanchez sensitive. She did lose an IV line. Course remarkable for some confusion and hallucination in this elderly. She is a DNR. I'm Rx ing Cipro back to SNU with no change in meds. DNR outside form signed.Sutures can be taken out after 7 days from January 28 which is going to be on February 04 Patient seen and examined, discussed with desk monitor time 31 minutes greater than 50% DC education counseling and coordination. consults performed none Procedures performed suturing of the chin laceration Brief Hospital Course Allergies Allergies Coded Allergies Type Severity Reaction Last Updated Verified haloperidol Allergy Intermediate 01/30/18 Yes metoclopramide Allergy Intermediate 01/30/18 Yes risperidone Allergy Intermediate 01/30/18 Yes ziprasidone Allergy Intermediate 01/30/18 Yes Vital Signs Vital Signs Date Time Temp Pulse Resp B/P (MAP) Pulse Ox O2 Delivery O2 Flow Rate FiO2 02/01/18 09:00 80 138/80 02/01/18 03:00 97.5 18 97 Room Air 97.5 Lab Results Laboratory Tests Test 01/30/18 11:35 White Blood Count 5.5 x10^3/uL (4.0-11.0) Red Blood Count 4.68 x10^6/uL (3.50-5.40) Hemoglobin 14.4 g/dL (12.0-15.5) Hematocrit 42.5 % (36.0-47.0) Mean Corpuscular Volume 91 fL (79-100) Mean Corpuscular Hemoglobin 31 pg (25-35) Mean Corpuscular Hemoglobin Concent 34 g/dL (31-37) Red Cell Distribution Width 15.1 % (11.5-14.5) Platelet Count 170 x10^3/uL (140-400) Neutrophils (%) (Auto) 75 % (31-73) Lymphocytes (%) (Auto) 15 % (24-48) Monocytes (%) (Auto) 9 % (0-9) Eosinophils (%) (Auto) 0 % (0-3) Basophils (%) (Auto) 1 % (0-3) Neutrophils # (Auto) 4.1 x10^3uL (1.8-7.7) Lymphocytes # (Auto) 0.8 x10^3/uL (1.0-4.8) Monocytes # (Auto) 0.5 x10^3/uL (0.0-1.1) Eosinophils # (Auto) 0.0 x10^3/uL (0.0-0.7) Basophils # (Auto) 0.0 x10^3/uL (0.0-0.2) Erythrocyte Sedimentation Rate 5 (0-25) Sodium Level 143 mmol/L (136-145) Potassium Level 3.6 mmol/L (3.5-5.1) Chloride Level 103 mmol/L (98-107) Carbon Dioxide Level 28 mmol/L (21-32) Anion Gap 12 (6-14) Blood Urea Nitrogen 17 mg/dL (7-20) Creatinine 0.9 mg/dL (0.6-1.0) Estimated GFR (Cockcroft-Gault) 61.4 Glucose Level 84 mg/dL (70-99) Calcium Level 9.3 mg/dL (8.5-10.1) Brief Hospital Course Ms. Weller is a 72 old [sex] who presented with [ ] Discharge Information Scheduled Amlodipine Besylate (Amlodipine Besylate) 2.5 Mg Tablet, 2.5 MG PO DAILY for 30 Days, #30 Prescribed by: JANINE ROCHA on 01/30/18 1124 Ascorbic Acid (Ascorbic Acid) 500 Mg Tablet, 500 MG PO QHS, (Reported) Entered as Reported by: GABY WEISS on 01/29/18101 Last Taken: Unknown Dose on Unknown Date & Time Last Action: Continued on 01/29/182028 by ESA SOLANO Aspirin (Aspirin Ec) 81 Mg Tablet.dr, 1 TAB PO DAILY, #30 Ref 3 (Reported) Entered as Reported by: GABY WEISS on 01/29/18101 Last Taken: Unknown Dose on Unknown Date & Time Last Action: Continued on 01/29/182028 by ESA SOLANO Atorvastatin Calcium (Atorvastatin Calcium) 20 Mg Tablet, 1 TAB PO DAILY, #30 Ref 5 (Reported) Entered as Reported by: GABY WEISS on 01/29/18101 Last Taken: Unknown Dose on Unknown Date & Time Last Action: Continued on 01/29/182028 by ESA SOLANO Calcium Carbonate (Calcium) 500 Mg Tablet, 2,000 MG PO DAILY, (Reported) Entered as Reported by: GABY WEISS on 01/29/18101 Last Taken: Unknown Dose on Unknown Date & Time Last Action: Continued on 01/29/182028 by ESA SOLANO Carbidopa/Levodopa (Sinemet 25-100 Mg Tablet) 1 Each Tablet, 1 TAB PO TID, ( Reported) Entered as Reported by: GABY WEISS on 01/29/18101 Last Taken: Unknown Dose on Unknown Date & Time Last Action: Continued on 01/29/182028 by ESA SOLANO Cholecalciferol (Vitamin D3) (Vitamin D) 2,000 Unit Capsule, 1 CAP PO DAILY, # 30 Ref 3 (Reported) Entered as Reported by: GABY WEISS on 01/29/18101 Last Taken: Unknown Dose on Unknown Date & Time Last Action: Converted on 01/29/182028 by ESA SOLANO Divalproex Sodium (Depakote Er) 250 Mg Tab.er.24h, 1 TAB PO BID, #30 Ref 2 ( Reported) Entered as Reported by: GABY WEISS on 01/29/18101 Last Taken: Unknown Dose on Unknown Date & Time Last Action: Continued on 01/29/182028 by ESA SOLANO Dronabinol (Marinol) 2.5 Mg Capsule, 2.5 MG PO BID for 30 Days, #60 Prescribed by: JANIEN ROCHA on 01/30/18 1128 Memantine HCl (Memantine HCl ER) 14 Mg Cap.spr.24, 14 MG PO DAILY, (Reported) Entered as Reported by: GABY WEISS on 01/29/18101 Last Taken: Unknown Dose on Unknown Date & Time Last Action: Converted on 01/29/182028 by ESA XIOMARA Multivits-Min/Fa/Lycopene/Lut (Centrum Silver Tablet) 1 Each Tablet, 1 EACH PO DAILY, (Reported) Entered as Reported by: GABY WEISS on 01/29/18101 Last Taken: Unknown Dose on Unknown Date & Time Last Action: Converted on 01/29/182028 by ESA SOLANO Sennosides (Senokot) 8.6 Mg Tablet, 1 TAB PO QHS, #40 (Reported) Entered as Reported by: GABY WEISS on 01/29/18101 Last Taken: Unknown Dose on Unknown Date & Time Last Action: Converted on 01/29/182028 by ESA SOLANO Scheduled PRN Acetaminophen (Tylenol) 325 Mg Tablet, 2 TAB PO PRN Q4HRS PRN for MILD PAIN / TEMP, #30 (Reported) Entered as Reported by: GABY WEISS on 01/29/18101 Last Taken: Unknown Dose on Unknown Date & Time Last Action: Continued on 01/29/182028 by SEA SOLANO Hydrocodone Bit/Acetaminophen (Hydrocodone-Apap 5-325 ) 1 Each Tablet, 1 TAB PO PRN Q6HRS PRN for PAIN, Ref 0 (Reported) Entered as Reported by: GABY WEISS on 01/29/18101 Last Taken: Unknown Dose on Unknown Date & Time Last Action: Continued on 01/29/182028 by JANINE WHITE MD Feb 01, 2018 11:02
[2018-02-01] MEDS ORDERED: CIPR500T94 PO (11:03)
[2018-02-01] MEDS: DRONABINOL 2.5 MG CAPSULE. PO SCH (12:58)
== END 2018-02-01 14:05 | disposition home or self-care (01) | DRG 871 ==
LOC: ER 18:39 → 5 SOUTH 21:30
PROVIDERS: ADMIT Internal Medicine; ATTEND Internal Medicine
PROC: 0HQ1XZZ Repair Face Skin, External Approach (ICD-10-PCS; principal; 2018-01-28)
DX: A41.9 Sepsis, unspecified organism (principal); G93.40 Encephalopathy, unspecified; N39.0 Urinary tract infection, site not specified; E46 Unspecified protein-calorie malnutrition; E87.2 Acidosis; Z68.1 Body mass index [BMI] 19.9 or less, adult; S01.81XA Laceration without foreign body of other part of head, initial encounter; E78.00 Pure hypercholesterolemia, unspecified; E78.5 Hyperlipidemia, unspecified; F03.90 Unspecified dementia, unspecified severity, without behavioral disturbance, psychotic disturbance, mood disturbance, and anxiety; Z66 Do not resuscitate; S06.0X0A Concussion without loss of consciousness, initial encounter; G20 Parkinson's disease; M19.90 Unspecified osteoarthritis, unspecified site; W19.XXXA Unspecified fall, initial encounter; Y92.129 Unspecified place in nursing home as the place of occurrence of the external cause; Z79.82 Long term (current) use of aspirin; Z82.3 Family history of stroke; Z85.820 Personal history of malignant melanoma of skin; Y93.89 Activity, other specified; Y99.8 Other external cause status; Z82.49 Family history of ischemic heart disease and other diseases of the circulatory system; Z88.8 Allergy status to other drugs, medicaments and biological substances
CPT/HCPCS: 12013; 36415; 70450; 70486; 71045; 72125; 72170; 80048; 80053; 80164; 81001; 82550; 83605; 83735; 84484; 85025; 85610; 85651; 85730; 87086; 87186; 87641; 90471; 90715; 93005; 96374; J0690; J0696; J1650; J2060; J3490; J7030; Q0167; 99285-25